=== PATIENT | female | born 2000 | race Caucasian/White ===

== ENCOUNTER 2020-05-14 18:23 | Emergency (ER) | payer BC, SELFPAY ==
[2020-05-14 18:45] VITALS: BP 129/75; PULSE 101; RESP 16; TEMP 37.1; O2SAT 99; BMI 35.3
--- NOTE | 2020-05-14 18:52 | HMH.EDUTC ---
[facility] [place] Clinical Impression: Vomiting Qualifiers: Vomiting type: unspecified Vomiting Intractability: non-intractable Nausea presence: with nausea Qualified Code(s): R11.2 - Nausea with vomiting, unspecified Qualifiers: Weeks of gestation: 8 weeks Qualified Code(s): Z3A.08 - 8 weeks gestation of Disposition: Home, Self-Care Condition on Discharge: Good Instructions: DI for Hyperemesis Gravidarum Additional Instructions: RTC or ER if needed this weekend. Follow up with OB next week. Prescriptions: Promethazine HCl 12.5 mg PO Q6HP PRN 5 Days #10 tab PRN Reason: Vomiting [facility] Referrals: PCP,No [Primary Care Provider] - Time of Disposition: 19:39 Medical Decision Making - Ray Inquiry Pt receiving controlled substance: No Vital Signs: 05/14/20 18:45 Temperature 98.7 F Temperature Source Oral Pulse Rate [Right Brachial] 101 H Respiratory Rate 16 Blood Pressure [Right Arm] 129/75 Blood Pressure Mean [Right Arm] 93 Blood Pressure Source [Right Arm] Automatic Cuff Blood Pressure Position [Right Arm] Sitting 02 Sat by Pulse Oximetry 99 Oxygen Delivery Method Room Air Orders (Tests/Meds): ED MEDICATIONS Discontinued Medications Generic Name Dose Route Start Last Admin Trade Name Freq PRN Reason Stop Dose Admin Sodium Chloride 1,000 mls @ 999 mls/hr 05/14/20 19:00 05/14/20 19:31 Sod Chlor 0.9% 1000ml Bag IV 05/14/20 20:00 Not Given .Q1H1M KUMAR Promethazine HCl 12.5 mg 05/14/20 19:07 05/14/20 19:10 Promethazine Hcl 12.5mg Tablet PO 05/14/20 19:08 12.5 mg ONCE ONE Administration Medical Decision Narrative: Brittany attempted to start IV on patient. She got upset and asked her to remove the needle, and then vomited. I asked her to call her grandmother to give her a ride, then offered IM Phenerghan, which she also refused. Given Phenerghan 12.5 mg PO and will observe. [facility] [place] - General Stated complaint: 8 wks preg vomiting for 3 days Time Seen by Provider: 05/14/20 18:52 - History of Present Illness Provider Complaint: Vomiting X 3 days. 1 episode of diarrhea. Has not kept anything down today. Has not urinated since she woke up. She is 8 weeks . No abdominal pain. No fever. Onset (ago): day(s) (3) Location: abdomen Relieving factors: none Exacerbating factors: eating Associated symptoms: denies other symptoms Treatments prior to arrival: none - Related Data Previous Rx's Medication Instructions Recorded Promethazine HCl 12.5 mg PO Q6HP PRN 5 Days #10 tab 05/14/20 Allergies Allergy/AdvReac Type Severity Reaction Status Date / Time No Known Allergies Allergy Verified 04/19/20 12:04 [facility] History - Hepatitis A Screen Attestation statement:: This patient has been screened for Hepatitis A risk factors. I have reviewed the patient's past medical history: Yes 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: Reports:: Anxiety, Depression Other Surgeries: Yes: No Previous Surgery - Social History Smoking Status: Never smoker Alcohol Intake: never Substance Use Type: denies use Occupational Status: employed - Psychiatric History Pschychiatric History:: Reports:: Anxiety, Depression Family Hx:: Non-contributory ROS Obtained: Yes All systems reviewed & no additional complaints - Gastrointestinal Gastrointestingal: Reports: diarrhea, vomiting Physical Exam - General General appearance: alert, in no apparent distress - Head Head exam: normocephalic - Eye Eye exam: Present: PERRL - ENT ENT exam: Present: mucous membranes dry - Respiratory Respiratory exam: Present: normal lung sounds bilaterally - Cardiovascular Cardiovascular exam: Present: regular rate, normal rhythm - Abdominal Exam Abdominal exam: Present: soft - Neurological Exam Neurological exam: Present: alert, oriented X3 - Psychiatric Psychiatric exam: Present: normal affect, normal mood
[2020-05-14 19:42] VITALS: BP 129/75; PULSE 101; RESP 16; TEMP 37.1; O2SAT 99
== END 2020-05-14 19:46 | disposition home or self-care (01) ==
PROVIDERS: Emergency Provider Physician Assistant
DX: O21.0 Mild hyperemesis gravidarum (principal); Z3A.08 8 weeks gestation of pregnancy
CPT/HCPCS: 99201

== ENCOUNTER 2023-04-18 11:47 | Outpatient (CLI) | payer MEDICAID, SELFPAY ==
[2023-04-18 12:05] VITALS: BMI 28.3
== END 2023-04-18 12:17 | disposition home or self-care (01) ==
LOC: UTC 11:53
PROVIDERS: Visit Provider Nurse Practitioner Family
DX: Z11.1 Encounter for screening for respiratory tuberculosis (principal)
CPT/HCPCS: 86580

== ENCOUNTER 2023-07-24 10:27 | Emergency (ER) | payer MEDICAID, SELFPAY ==
[2023-07-24 10:35] VITALS: BP 129/83; PULSE 106; RESP 22; TEMP 36.9; O2SAT 100; BMI 39.6
--- NOTE | 2023-07-24 10:42 | ED_ITS ---
Discharge Plan Disposition Patient Disposition: Home, Self-Care Condition: Good Prescriptions Prescriptions: New amoxicillin-pot clavulanate 875-125 mg Tablet 1 tab PO Q12H 7 Days Qty: 14 0RF fluticasone propionate [Flonase Allergy Relief] 50 mcg/actuation spray,suspension 2 spray intranasal DAILY Qty: 16 0RF Rx Instructions: administer into each nostril daily methylprednisolone [Medrol (Mario)] 4 mg tablets,dose pack See Rx Instructions .Route .COMPLEX 6 Days Qty: 21 0RF Rx Instructions: taper pack; No Action bupropion HCl 150 mg tablet sustained-release 12 hr 150 mg PO DAILY Patient Comments: TAKE 1 TABLET BY MOUTH ONCE DAILY. DO NOT CRUSH, CHEW, OR SPLIT sertraline 100 mg tablet 100 mg PO DAILY Patient Comments: TAKE 1 TABLET BY MOUTH ONCE DAILY Referrals Follow up/Referrals: Provider,Referral, MD [Primary Care Provider] - See instructions Activity Restrictions/Add. Instructions Additional Instructions/Restrictions: Take medication as prescribed Over the counter Motrin and/or Tylneol for fever and pain Follow up with your Family Doctor if no improvement or any worsening of symptoms Straight to ER if any life threatening symptoms Clinical Impressions Clinical Impression: Sinusitis Qualifiers: Sinusitis location: unspecified location Chronicity: unspecified Qualified Code(s): J32.9 - Chronic sinusitis, unspecified Stand Alone Forms Stand Alone Forms: Work/School Release Instructions Patient Instructions: DI for Sinusitis, Sinusitis Discharge ED Provider: Lucy Cisneros [facility] [place] H[place] General Stated complaint: runny nose, sinus pressure Mode of Arrival: Ambulatory Source of Information: Patient Limitations: No Limitations Time Seen by Provider: 07/24/23 10:43 Description of Symptoms (Recalled from Triage Doc. by RN): PATIENT C/O RUNNY NOSE AND CONGESTION THAT STARTED LAST NIGHT HEENT Symptoms (Recalled from RN notes): Yes Resp Symptoms (Recalled from RN notes): No Skin Symptoms (Recalled from RN notes): No MS Symptoms (Recalled from RN notes): No Functional Status (Recalled from RN notes): WNL History of Present Illness Provider Complaint: Patient states that she has been having sinus congestion and feeling of fullness in both ears for 4-5 days but got worse last night States that she has tried several over the counter medications but they havent worked so today she came in to get checked thinking she may need some antibiotics to clear it up Denies flu symptoms denies exposure to flu or COVID Related Data Home Medications Medication Instructions Recorded Confirmed bupropion HCl 150 mg tablet,12 hr 150 mg PO DAILY 07/24/23 07/24/23 sustained-release sertraline 100 mg tablet 100 mg PO DAILY 07/24/23 07/24/23 Previous Rx's Medication Instructions Recorded amoxicillin 875 mg-potassium 1 tab PO Q12H 7 days #14 tabs 07/24/23 clavulanate 125 mg tablet fluticasone propionate 50 2 spray intranasal DAILY #16 grams 07/24/23 mcg/actuation nasal spray,suspension (Flonase Allergy Relief) methylprednisolone 4 mg tablets in See Rx Instructions .Route 07/24/23 a dose pack (Medrol (Mario)) .COMPLEX 6 days #21 tabs Allergies Allergy/AdvReac Type Severity Reaction Status Date / Time No Known Allergies Allergy Verified 04/19/20 12:04 Worker's Comp Is this a Worker's Comp case?: [facility] Disclaimer: The information contained in this section may have been updated after the patient was seen, as this information can be updated by other users. 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 (Updated 07/24/23 @ 10:49 by Lucy Cisneros APRN) Anxiety Depression Kidney stone Urinary tract infection Surgical History (Updated 07/24/23 @ 10:42 by Funmilayo Aponte RN) History of section History of tubal ligation Social History Smoking Status: Never smoker alcohol intake: never substance use type: denies use current occupational status: other Travel in the last 8 weeks: None ROS Obtained: Yes All systems reviewed & no additional complaints except as documented and Yes Systems reviewed as appropriate & no additional complaints except as documented Constitutional Constitutional: Reports system reviewed and no additional complaints, except as documented, Reports as per HPI, Denies body ache, Denies chills, Denies fever(s) and Reports headache(s) ENT Ears, Nose, Mouth, and Throat: Reports system reviewed and no additional complaints, except as documented, Reports as per HPI, Reports headache(s), Reports sinus pain and Reports sinus pressure Cardiovascular Cardiovascular: Reports system reviewed and no additional complaints, except as documented and Reports as per HPI Respiratory Respiratory: Reports system reviewed and no additional complaints, except as documented and Reports as per HPI Gastrointestinal Gastrointestingal: Reports system reviewed and no additional complaints, except as documented and as per HPI Neurologic Neurologic: Reports headache(s) Physical Exam General General appearance: alert and in no apparent distress ENT ENT exam: Present mucous membranes moist Expanded ENT Exam TM/Canal exam: Bilateral TM: bulging Nose exam: Present sinus tenderness Respiratory Respiratory exam: Present normal lung sounds bilaterally Cardiovascular Cardiovascular exam: Present regular rate, normal rhythm and normal heart sounds Neurological Exam Neurological exam: Present alert, oriented X3 and normal gait Medical Decision Making Ray Inquiry Pt receiving controlled substance: No Ray was queried for this patient: No Vital Signs: 07/24/23 10:35 Temperature 98.4 F Temperature Source Oral Pulse Rate [Left Brachial] 106 H Respiratory Rate 22 Blood Pressure [Left Arm] 129/83 Blood Pressure Mean [Left Arm] 98 Blood Pressure Source [Left Arm] Automatic Cuff Blood Pressure Position [Left Arm] Sitting 02 Sat by Pulse Oximetry 100 Oxygen Delivery Method Room Air Medical Decision Narrative: Patient denies states that her last period was a couple weeks ago
[2023-07-24 10:43] VITALS: BP 129/83; PULSE 106; RESP 22; TEMP 36.9; O2SAT 100
== END 2023-07-24 10:53 | disposition home or self-care (01) ==
PROVIDERS: Emergency Provider Nurse Practitioner
DX: J01.90 Acute sinusitis, unspecified (principal); R51.9 Headache, unspecified; R09.81 Nasal congestion
CPT/HCPCS: 99212; 99214; G0463

== ENCOUNTER 2023-08-04 14:32 | Emergency (ER) | payer MEDICAID, SELFPAY ==
[2023-08-04 15:05] VITALS: BP 124/80; PULSE 98; RESP 18; TEMP 37.1; O2SAT 96; BMI 39.6
[2023-08-04 15:27] LABS: UTC Strep Screen (Rapid) Negative (Negative)
--- NOTE | 2023-08-04 15:46 | ED_ITS ---
Discharge Plan Disposition Patient Disposition: Home, Self-Care Condition: Good Prescriptions Prescriptions: New yengslrllgtjjyg-ykpfagrke-UX [Bromfed DM] 2-30-10 mg/5 mL syrup 10 ml PO Q6H PRN (Reason: cold symptoms) Qty: 118 0RF No Action bupropion HCl 150 mg tablet sustained-release 12 hr 150 mg PO DAILY Patient Comments: TAKE 1 TABLET BY MOUTH ONCE DAILY. DO NOT CRUSH, CHEW, OR SPLIT sertraline 100 mg tablet 100 mg PO DAILY Patient Comments: TAKE 1 TABLET BY MOUTH ONCE DAILY Referrals Follow up/Referrals: Provider,Referral, MD [Primary Care Provider] - See instructions Activity Restrictions/Add. Instructions Additional Instructions/Restrictions: No sign of a bacterial infection. Likely viral. Viruses can take 7-14 days to run their course. Nasal saline and bulb syringe or nose Laura to remove nasal drainage to help with nasal congestion. Hard to eat, drink, sleep with nasal congestion so important to keep this cleaned out. Monitor temp. Tylenol or Motrin as needed for pain or fever Encourage fluids, water, Gatorade, Powerade, Pedialyte if infant/toddler/child Warm salt water gargles Warm fluids Sore throat lozenges Sleep elevated Humidifier/vaporizer Follow-up immediately for new or worsening symptoms or no noticeable improvement over the next 48-72 hours. dont take otc allergy meds while on bromfed Clinical Impressions Clinical Impression: Allergic rhinitis Instructions Patient Instructions: DI for Allergic Rhinitis Discharge ED Provider: Brad ([facility])[place] [facility] [place] General Stated complaint: diarrhea, vomitting, headache. hoarse Mode of Arrival: Ambulatory Source of Information: Patient Limitations: No Limitations Time Seen by Provider: 08/04/23 15:46 Description of Symptoms (Recalled from Triage Doc. by RN): Pt's symptoms are allergies, ASCENCIO, fever, diarrhea, sore throat, and vomiting. HEENT Symptoms (Recalled from RN notes): Yes Resp Symptoms (Recalled from RN notes): No Skin Symptoms (Recalled from RN notes): No MS Symptoms (Recalled from RN notes): No Functional Status (Recalled from RN notes): n/a History of Present Illness Provider Complaint: 23 yr old female presents for cough,congestion, ASCENCIO, fever, diarrhea, sore throat, and vomiting. Related Data Home Medications Medication Instructions Recorded Confirmed bupropion HCl 150 mg tablet,12 hr 150 mg PO DAILY 07/24/23 08/04/23 sustained-release sertraline 100 mg tablet 100 mg PO DAILY 07/24/23 08/04/23 Previous Rx's Medication Instructions Recorded upkbwryskdqdpuw-affttbitmfyvtjb-GG 10 ml PO Q6H PRN cold symptoms 08/04/23 2 mg-30 mg-10 mg/5 mL oral syrup #118 mL (Bromfed DM) Allergies Allergy/AdvReac Type Severity Reaction Status Date / Time No Known Allergies Allergy Verified 08/04/23 15:28 Worker's Comp Is this a Worker's Comp case?: No [facility] Disclaimer: The information contained in this section may have been updated after the patient was seen, as this information can be updated by other users. 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) Smoking Status: Never smoker alcohol intake: never substance use type: denies use current occupational status: other Travel in the last 8 weeks: None ROS Obtained: Yes All systems reviewed & no additional complaints except as documented Constitutional Constitutional: Reports system reviewed and no additional complaints, except as documented, Reports as per HPI and Reports headache(s) Eyes Eyes: Reports system reviewed and no additional complaints, except as documented ENT Ears, Nose, Mouth, and Throat: Reports system reviewed and no additional complaints, except as documented, Reports as per HPI, Reports headache(s), Reports nasal congestion, Reports nasal discharge, Reports sinus pain, Reports sinus pressure and Reports sore throat Cardiovascular Cardiovascular: Reports system reviewed and no additional complaints, except as documented Respiratory Respiratory: Reports system reviewed and no additional complaints, except as documented Gastrointestinal Gastrointestingal: Reports system reviewed and no additional complaints, except as documented Musculoskeletal Musculoskeletal: Reports system reviewed and no additional complaints, except as documented Integumentary/Breasts Skin/Breast: Reports system reviewed and no additional complaints, except as documented Neurologic Neurologic: Reports system reviewed and no additional complaints, except as documented and Reports headache(s) Endocrine Endocrine: Reports system reviewed and no additional complaints, except as documented Allergic/Immunologic Allergic/Immunologic: Reports system reviewed and no additional complaints, except as documented, Reports as per HPI and Reports seasonal rhinorrhea Physical Exam General General appearance: alert and in no apparent distress Head Head exam: atraumatic Eye Eye exam: Present normal appearance and PERRL ENT ENT exam: Present normal exam, normal oropharynx, mucous membranes moist and TM's normal bilaterally Respiratory Respiratory exam: Present normal lung sounds bilaterally Cardiovascular Cardiovascular exam: Present regular rate and normal rhythm Neurological Exam Neurological exam: Present alert and oriented X3 Psychiatric Psychiatric exam: Present normal affect Skin Skin exam: Present warm and intact Lymphatic Lymphatic Findings: no adenopathy Medical Decision Making Medical Records Medical records reviewed: Yes I reviewed the patient's medical records. Ray Inquiry Pt receiving controlled substance: No Ray was queried for this patient: No Vital Signs: 08/04/23 15:05 Temperature 98.8 F Temperature Source Oral Pulse Rate [Right Radial] 98 H Respiratory Rate 18 Blood Pressure [Right Arm] 124/80 Blood Pressure Mean [Right Arm] 94 Blood Pressure Source [Right Arm] Automatic Cuff Blood Pressure Position [Right Arm] Sitting 02 Sat by Pulse Oximetry 96 Oxygen Delivery Method Room Air Lab Data Lab results reviewed: Yes I reviewed the patient's lab results. Lab Results 08/04/23 15:13: Strep Scn Rapid Clinic Negative Orders (Tests/Meds): ORDERS Category Date Time Status Strep Screen Confirmation Stat Micro 08/04/23 15:13 Received
[2023-08-04 15:59] VITALS: BP 124/80; PULSE 98; RESP 18; TEMP 37.1; O2SAT 96
== END 2023-08-04 15:59 | disposition home or self-care (01) ==
PROVIDERS: Emergency Provider Nurse Practitioner Family
DX: R05.9 Cough, unspecified (principal); J30.9 Allergic rhinitis, unspecified; R51.9 Headache, unspecified; R50.9 Fever, unspecified; R11.2 Nausea with vomiting, unspecified; R09.81 Nasal congestion; R19.7 Diarrhea, unspecified; R07.0 Pain in throat
CPT/HCPCS: 87880; 99212; 99214; G0463

== ENCOUNTER 2023-08-08 16:42 | Emergency (ER) | payer MEDICAID, SELFPAY ==
[2023-08-08 17:00] VITALS: BP 119/69; PULSE 82; RESP 18; TEMP 36.7; O2SAT 100; BMI 33.6
--- NOTE | 2023-08-08 17:01 | ED_ITS ---
Discharge Plan Disposition Patient Disposition: Home, Self-Care Condition: Good Prescriptions Prescriptions: New azithromycin [Zithromax] 250 mg tablet 250 mg PO UD DOSE PK Qty: 6 0RF Rx Instructions: Take two (2) tablets today, then one (1) tablet days #2 thru #5 methylprednisolone 4 mg Tablets,Dose Pack 4 mg PO DIRECTED 6 Days Qty: 21 0RF Rx Instructions: Take 1 pack as directed for 6 days qahgxdqglgewdhz-dgbxjnojd-FN [Bromfed DM] 2-30-10 mg/5 mL Syrup 5 ml PO Q6H PRN (Reason: Cough) Qty: 240 0RF guaifenesin [Mucinex] 600 mg tablet extended release 12hr 600 - 1,200 mg PO BIDP PRN (Reason: Congestion) Qty: 30 0RF No Action bupropion HCl 150 mg tablet sustained-release 12 hr 150 mg PO DAILY Patient Comments: TAKE 1 TABLET BY MOUTH ONCE DAILY. DO NOT CRUSH, CHEW, OR SPLIT sertraline 100 mg tablet 100 mg PO DAILY Patient Comments: TAKE 1 TABLET BY MOUTH ONCE DAILY Referrals Follow up/Referrals: Provider,Referral, MD [Primary Care Provider] - See instructions Activity Restrictions/Add. Instructions Additional Instructions/Restrictions: Drink plenty of fluids. Take tylenol or ibuprofen for pain or fever. Take the medications as directed. Follow up with your regular doctor. GO TO THE ER FOR ANY WORSENING SYMPTOMS Don't start the oral steroids until tomorrow since you had the steroid shot here today. Clinical Impressions Clinical Impression: Sinusitis Instructions Patient Instructions: Sinusitis, DI for Sinusitis Discharge ED Provider: Harpreet Hauser [facility] General Stated complaint: poss sinus inf Time Seen by Provider: 08/08/23 17:01 History of Present Illness Provider Complaint: She states that for the past 3 days she has had worsening sinus congestion, ear pain, and chest congestion. Related Data Home Medications Medication Instructions Recorded Confirmed bupropion HCl 150 mg tablet,12 hr 150 mg PO DAILY 07/24/23 08/08/23 sustained-release sertraline 100 mg tablet 100 mg PO DAILY 07/24/23 08/08/23 Previous Rx's Medication Instructions Recorded azithromycin 250 mg tablet 250 mg PO UD DOSE PK #6 tabs 08/08/23 (Zithromax) xmpfrmfhsoaquma-exibptxxdjjcobf-PO 5 ml PO Q6H PRN Cough #240 mL 08/08/23 2 mg-30 mg-10 mg/5 mL oral syrup (Bromfed DM) guaifenesin 600 mg tablet, 600 - 1,200 mg (1 - 2 x 600 mg) PO 08/08/23 extended release 12 hr (Mucinex) BIDP PRN Congestion #30 tabs methylprednisolone 4 mg tablets in 4 mg PO DIRECTED 6 days #21 tabs 08/08/23 a dose pack Allergies Allergy/AdvReac Type Severity Reaction Status Date / Time No Known Allergies Allergy Verified 08/08/23 17:11 [facility] Disclaimer: The information contained in this section may have been updated after the patient was seen, as this information can be updated by other users. 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 History of section Social History Smoking Status: Never smoker alcohol intake: never substance use type: denies use current occupational status: other Travel in the last 8 weeks: None ROS Obtained: Yes All systems reviewed & no additional complaints except as documented Constitutional Constitutional: Reports chills and Reports fever(s) Eyes Eyes: Denies eye discharge ENT Ears, Nose, Mouth, and Throat: Reports as per HPI Cardiovascular Cardiovascular: Denies chest pain Respiratory Respiratory: Denies chest congestion and Reports cough Gastrointestinal Gastrointestingal: Reports nausea; Denies abdominal pain, constipation, cramping, diarrhea or vomiting Musculoskeletal Musculoskeletal: Denies arthralgias Integumentary/Breasts Skin/Breast: Denies rash Neurologic Neurologic: Denies paresthesias Physical Exam General General appearance: alert and in no apparent distress Eye Eye exam: Present normal appearance, PERRL and EOMI ENT ENT exam: Present mucous membranes moist and normal external ear exam Expanded ENT Exam External ear exam: Present normal external inspection TM/Canal exam: Bilateral TM: erythema and bulging Nose exam: Absent sinus tenderness Nasal speculum exam: Bilateral: normal Mouth exam: Present normal external inspection; Absent drooling Teeth exam: Present normal inspection Throat exam: Present tonsillar erythema and tonsillomegaly Neck Neck exam: Present normal inspection, full ROM and trachea midline; Absent tenderness, lymphadenopathy or thyromegaly Chest Chest inspection: Present normal inspection and symmetric chest wall rise; Absent tenderness or rash Respiratory Respiratory exam: Present normal lung sounds bilaterally; Absent respiratory distress, wheezes, stridor or accessory muscle use Cardiovascular Cardiovascular exam: Present regular rate, normal rhythm and normal heart sounds Abdominal Exam Abdominal exam: Present soft; Absent distention, tenderness, guarding, rebound or rigidity Extremities Exam Extremities exam: Present normal inspection, full ROM and normal capillary refill; Absent tenderness or calf tenderness Back Exam Back exam: Present normal inspection and full ROM; Absent tenderness Neurological Exam Neurological exam: Present alert and oriented X3 Psychiatric Psychiatric exam: Present normal affect and normal mood Skin Skin exam: Present warm, dry, intact and normal color Lymphatic Lymphatic Findings: no adenopathy Medical Decision Making Medical Records Medical records reviewed: No I reviewed the patient's medical records. Ray Inquiry Pt receiving controlled substance: No Lab Data Lab results reviewed: Yes I reviewed the patient's lab results.
[2023-08-08] MEDS: DEXAMETHASONE 4MG/ML 1ML VIAL 8 MG IM (17:36)
[2023-08-08 17:57] VITALS: BP 119/69; PULSE 82; RESP 18; TEMP 36.7; O2SAT 100
== END 2023-08-08 17:57 | disposition home or self-care (01) ==
PROVIDERS: Emergency Provider Nurse Practitioner Family
DX: J01.90 Acute sinusitis, unspecified (principal); R09.81 Nasal congestion; H92.09 Otalgia, unspecified ear; F41.9 Anxiety disorder, unspecified; F32.A Depression, unspecified
CPT/HCPCS: 96372; 99212; 99214; G0463

== ENCOUNTER 2023-09-19 17:27 | Emergency (ER) | payer MEDICAID, SELFPAY ==
[2023-09-19 18:10] VITALS: BP 164/71; PULSE 100; RESP 18; TEMP 36.8; O2SAT 100; BMI 39.0
--- NOTE | 2023-09-19 18:29 | ED_ITS ---
Discharge Plan Disposition Patient Disposition: Home, Self-Care Condition: Good Prescriptions Prescriptions: New amoxicillin 875 mg tablet 875 mg PO Q12H Qty: 20 0RF benzonatate 100 mg capsule 100 mg PO TIDP PRN (Reason: Cough) Qty: 30 0RF methylprednisolone 4 mg Tablets,Dose Pack 4 mg PO DIRECTED 6 Days Qty: 21 0RF Rx Instructions: Take 1 pack as directed for 6 days No Action bupropion HCl 150 mg tablet sustained-release 12 hr 150 mg PO DAILY Patient Comments: TAKE 1 TABLET BY MOUTH ONCE DAILY. DO NOT CRUSH, CHEW, OR SPLIT sertraline 100 mg tablet 100 mg PO DAILY Patient Comments: TAKE 1 TABLET BY MOUTH ONCE DAILY Referrals Follow up/Referrals: Provider,Referral, MD [Primary Care Provider] - See instructions Activity Restrictions/Add. Instructions Additional Instructions/Restrictions: Drink plenty of fluids. Take tylenol or ibuprofen for pain or fever. Take the medications as directed. Follow up with your regular doctor. GO TO THE ER FOR ANY WORSENING SYMPTOMS Clinical Impressions Clinical Impression: Sinusitis Qualifiers: Sinusitis location: unspecified location Chronicity: unspecified Qualified Code(s): J32.9 - Chronic sinusitis, unspecified Instructions Patient Instructions: Sinusitis, DI for Sinusitis Discharge ED Provider: Harpreet Hauser [facility] General Stated complaint: sore throat, ruyny nose, Time Seen by Provider: 09/19/23 18:28 Related Data Home Medications Medication Instructions Recorded Confirmed bupropion HCl 150 mg tablet,12 hr 150 mg PO DAILY 07/24/23 09/19/23 sustained-release sertraline 100 mg tablet 100 mg PO DAILY 07/24/23 09/19/23 Previous Rx's Medication Instructions Recorded amoxicillin 875 mg tablet 875 mg PO Q12H #20 tabs 09/19/23 benzonatate 100 mg capsule 100 mg PO TIDP PRN Cough #30 caps 09/19/23 methylprednisolone 4 mg tablets in 4 mg PO DIRECTED 6 days #21 tabs 09/19/23 a dose pack Allergies Allergy/AdvReac Type Severity Reaction Status Date / Time No Known Allergies Allergy Verified 09/19/23 18:40 [facility] Disclaimer: The information contained in this section may have been updated after the patient was seen, as this information can be updated by other users. 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) History of tubal ligation History of section Social History Smoking Status: Never smoker alcohol intake: never substance use type: denies use current occupational status: other Travel in the last 8 weeks: None ROS Obtained: Yes All systems reviewed & no additional complaints except as documented Constitutional Constitutional: Reports poor appetite Eyes Eyes: Reports system reviewed and no additional complaints, except as documented ENT Ears, Nose, Mouth, and Throat: Reports as per HPI Cardiovascular Cardiovascular: Reports system reviewed and no additional complaints, except as documented and Denies chest pain Respiratory Respiratory: Denies shortness of breath, Denies chest congestion, Reports cough, Denies stridor and Denies wheezing Gastrointestinal Gastrointestingal: Reports system reviewed and no additional complaints, except as documented; Denies abdominal pain, diarrhea or vomiting Musculoskeletal Musculoskeletal: Reports system reviewed and no additional complaints, except as documented and Denies arthralgias Integumentary/Breasts Skin/Breast: Reports system reviewed and no additional complaints, except as documented and Denies rash Neurologic Neurologic: Denies paresthesias Allergic/Immunologic Allergic/Immunologic: Denies wheezing Physical Exam General General appearance: alert and in no apparent distress Eye Eye exam: Present normal appearance, PERRL and EOMI ENT ENT exam: Present mucous membranes moist and normal external ear exam Expanded ENT Exam External ear exam: Present normal external inspection TM/Canal exam: Bilateral TM: erythema and bulging Nose exam: Absent sinus tenderness Nasal speculum exam: Bilateral: normal Mouth exam: Present normal external inspection; Absent drooling Teeth exam: Present normal inspection Throat exam: Present tonsillar erythema and tonsillomegaly Neck Neck exam: Present normal inspection, full ROM and trachea midline; Absent tenderness, lymphadenopathy or thyromegaly Chest Chest inspection: Present normal inspection and symmetric chest wall rise; Absent tenderness or rash Respiratory Respiratory exam: Present normal lung sounds bilaterally; Absent respiratory distress, wheezes, stridor or accessory muscle use Cardiovascular Cardiovascular exam: Present regular rate, normal rhythm and normal heart sounds Abdominal Exam Abdominal exam: Present soft; Absent distention, tenderness, guarding, rebound or rigidity Extremities Exam Extremities exam: Present normal inspection, full ROM and normal capillary refill; Absent tenderness or calf tenderness Back Exam Back exam: Present normal inspection and full ROM; Absent tenderness Neurological Exam Neurological exam: Present alert and oriented X3 Psychiatric Psychiatric exam: Present normal affect and normal mood Skin Skin exam: Present warm, dry, intact and normal color Lymphatic Lymphatic Findings: no adenopathy Medical Decision Making Medical Records Medical records reviewed: No I reviewed the patient's medical records. Ray Inquiry Pt receiving controlled substance: No
[2023-09-19] MEDS: DEXAMETHASONE 4MG/ML 1ML VIAL 8 MG IM (19:01)
[2023-09-19 19:25] VITALS: BP 164/71; PULSE 100; RESP 18; TEMP 36.8; O2SAT 100
== END 2023-09-19 19:25 | disposition home or self-care (01) ==
PROVIDERS: Emergency Provider Nurse Practitioner Family
DX: J01.90 Acute sinusitis, unspecified (principal); R07.0 Pain in throat; R09.81 Nasal congestion
CPT/HCPCS: 96372; 99212; 99214; G0463

== ENCOUNTER 2023-10-02 08:09 | Emergency (ER) | payer MEDICAID, SELFPAY ==
[2023-10-02 08:20] VITALS: BP 123/70; PULSE 91; RESP 18; TEMP 36.9; O2SAT 100; BMI 40.0
[2023-10-02 08:28] LABS: Coronavirus 19, PCR Not Detected (NotDetected); Influenza A, PCR Not Detected (NotDetected); Influenza B, PCR Not Detected (NotDetected)
--- NOTE | 2023-10-02 08:34 | EXP.UTC ---
Discharge Plan Disposition Patient Disposition: Home, Self-Care Condition: Good Prescriptions Prescriptions: No Action bupropion HCl 150 mg tablet sustained-release 12 hr 150 mg PO DAILY Patient Comments: TAKE 1 TABLET BY MOUTH ONCE DAILY. DO NOT CRUSH, CHEW, OR SPLIT sertraline 100 mg tablet 100 mg PO DAILY Patient Comments: TAKE 1 TABLET BY MOUTH ONCE DAILY Referrals Follow up/Referrals: Provider,Referral, MD [Primary Care Provider] - See instructions Activity Restrictions/Add. Instructions Additional Instructions/Restrictions: *Monitor Temp, Over the counter Motrin or Tylenol as directed/as needed Tylenol every 4 hours and Motrin every 6 hours (as long as your family doctor has told you that you can take it) for fever or pain. and straight to ER if unable to lower temp less than 101.0 after medication given *Warm salt water gargles may help to soothe the throat *Throat Lozenges? *Warm fluids like tea with honey may help to soothe the throat? *Sleep elevated *Humidifier/Vaporizer Follow up IMMEDIATELY for new or worsening symptoms or no Noticeable improvement over the next 48-72 hours. 911 for difficulty breathing or swallowing You were tested for today for COVID19 your test result should be back in the next few hours, you may check your results on the [facility] Clinical Impressions Clinical Impression: Viral syndrome Stand Alone Forms Stand Alone Forms: Work/School Release Instructions Patient Instructions: DI for Viral Syndrome Discharge ED Provider: Lucy Cisneros [facility] HPI General Stated complaint: fever, body aches Mode of Arrival: Ambulatory Source of Information: Patient Limitations: No Limitations Time Seen by Provider: 10/02/23 08:35 Description of Symptoms (Recalled from Triage Doc. by RN): Pt's symptomd are cough, body aches, fever, and sore throat. 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 them now she is having body aches, headache, fever and cough wants to get checked to see if she may have it now too Related Data Home Medications Medication Instructions Recorded Confirmed bupropion HCl 150 mg tablet,12 hr 150 mg PO DAILY 07/24/23 10/02/23 sustained-release sertraline 100 mg tablet 100 mg PO DAILY 07/24/23 10/02/23 Allergies Allergy/AdvReac Type Severity Reaction Status Date / Time No Known Allergies Allergy Verified 10/02/23 08:30 Worker's Comp Is this a Worker's Comp case?: No [facility] Disclaimer: The information contained in this section may have been updated after the patient was seen, as this information can be updated by other users. 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) History of tubal ligation History of section Social History Smoking Status: Never smoker alcohol intake: never substance use type: denies use current occupational status: other Travel in the last 8 weeks: None ROS Obtained: Yes All systems reviewed & no additional complaints except as documented and Yes Systems reviewed as appropriate & no additional complaints except as documented Constitutional Constitutional: Reports system reviewed and no additional complaints, except as documented, Reports as per HPI, Reports body ache, Reports chills, Reports fatigue, Reports fever(s) and Reports headache(s) ENT Ears, Nose, Mouth, and Throat: Reports system reviewed and no additional complaints, except as documented, Reports as per HPI, Reports headache(s), Reports nasal congestion and Reports nasal discharge Cardiovascular Cardiovascular: Reports system reviewed and no additional complaints, except as documented and Reports as per HPI Respiratory Respiratory: Reports system reviewed and no additional complaints, except as documented, Reports as per HPI and Reports cough Gastrointestinal Gastrointestingal: Reports system reviewed and no additional complaints, except as documented and as per HPI Genitourinary Female Genitourinary: Reports system reviewed and no additional complaints, except as documented and Reports as per HPI Neurologic Neurologic: Reports headache(s) Endocrine Endocrine: Reports fatigue Physical Exam General General appearance: alert and in no apparent distress ENT ENT exam: Present mucous membranes moist Expanded ENT Exam Nose exam: Absent sinus tenderness Throat exam: Present normal inspection Respiratory Respiratory exam: Present normal lung sounds bilaterally; Absent respiratory distress or wheezes Cardiovascular Cardiovascular exam: Present regular rate, normal rhythm and normal heart sounds Abdominal Exam Abdominal exam: Present soft and normal bowel sounds; Absent distention or tenderness Neurological Exam Neurological exam: Present alert, oriented X3 and normal gait Medical Decision Making Ray Inquiry Pt receiving controlled substance: No Ray was queried for this patient: No Vital Signs: 10/02/23 08:20 Temperature 98.4 F Temperature Source Oral Pulse Rate [Right Radial] 91 H Respiratory Rate 18 Blood Pressure [Right Arm] 123/70 Blood Pressure Mean [Right Arm] 87 Blood Pressure Source [Right Arm] Automatic Cuff Blood Pressure Position [Right Arm] Sitting 02 Sat by Pulse Oximetry 100 Oxygen Delivery Method Room Air Orders (Tests/Meds): ORDERS Category Date Time Status Rapid PCR Covid and Flu A/B Stat Lab 10/02/23 08:22 Received
--- NOTE | 2023-10-02 08:36 | PC.NURSE ---
sent up a rapid covid and flu
[2023-10-02 09:00] VITALS: BP 123/70; PULSE 91; RESP 18; TEMP 36.9; O2SAT 100
--- NOTE | 2023-10-02 18:24 | PC.NURSE ---
Called pt and LM about test result.
== END 2023-10-02 09:00 | disposition home or self-care (01) ==
PROVIDERS: Emergency Provider Nurse Practitioner
DX: R51.9 Headache, unspecified (principal); R50.9 Fever, unspecified; R05.9 Cough, unspecified; Z20.822 Contact with and (suspected) exposure to COVID-19
CPT/HCPCS: 87636; 99212; 99213; G0463

== ENCOUNTER 2024-02-22 13:34 | Emergency (ER) | payer OTHER, SELFPAY ==
[2024-02-22 13:40] VITALS: BP 124/75; PULSE 103; RESP 17; TEMP 37.2; O2SAT 98; BMI 40.0
--- NOTE | 2024-02-22 13:49 | EXP.UTC ---
Discharge Plan Disposition Patient Disposition: Home, Self-Care Condition: Good Prescriptions Prescriptions: No Action phentermine 15 mg capsule 15 mg PO DAILY zonisamide 100 mg capsule 100 mg PO DAILY Referrals Follow up/Referrals: Provider,Referral, MD [Primary Care Provider] - See instructions Activity Restrictions/Add. Instructions Additional Instructions/Restrictions: *Monitor Temp, Over the counter Motrin or Tylenol as directed/as needed Tylenol every 4 hours and Motrin every 6 hours (as long as your family doctor has told you that you can take it) for fever or pain. and straight to ER if unable to lower temp less than 101.0 after medication given *Warm salt water gargles may help to soothe the throat *Throat Lozenges? *Warm fluids like tea with honey may help to soothe the throat? *Sleep elevated *Humidifier/Vaporizer Follow up IMMEDIATELY for new or worsening symptoms or no Noticeable improvement over the next 48-72 hours. 911 for difficulty breathing or swallowing You were tested for today for Upper Respiratory Panel with COVID19 your test result should be back in the next 24 hours, you may check your results on the [facility] [employer] [facility] Clinical Impressions Clinical Impression: Viral syndrome Stand Alone Forms Stand Alone Forms: Work/School Release Instructions Patient Instructions: DI for Viral Syndrome, DI for Headache Print Language Print Language: Irish Discharge ED Provider: Lucy Cisneros [facility] [place] HPI General Stated complaint: fever, migrane Mode of Arrival: Ambulatory Source of Information: Patient Limitations: No Limitations Time Seen by Provider: 02/22/24 13:51 Description of Symptoms (Recalled from Triage Doc. 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) History of tubal ligation History of section Social History Smoking Status: Never smoker alcohol intake: never substance use type: denies use current occupational status: other Travel in the last 8 weeks: None ROS Obtained: Yes All systems reviewed & no additional complaints except as documented and Yes Systems reviewed as appropriate & no additional complaints except as documented Constitutional Constitutional: Reports system reviewed and no additional complaints, except as documented, Reports as per HPI, Reports body ache, Reports chills, Reports fever(s) and Reports headache(s) Eyes Eyes: Reports system reviewed and no additional complaints, except as documented, Reports as per HPI, Denies blurry vision, Denies floaters, Denies sensitivity to light, Denies photophobia, Denies seeing flashes and Denies tunnel vision ENT Ears, Nose, Mouth, and Throat: Reports system reviewed and no additional complaints, except as documented, Reports as per HPI, Reports dizziness and Reports headache(s) Cardiovascular Cardiovascular: Reports system reviewed and no additional complaints, except as documented and Reports as per HPI Respiratory Respiratory: Reports system reviewed and no additional complaints, except as documented and Reports as per HPI Gastrointestinal Gastrointestingal: Reports system reviewed and no additional complaints, except as documented and as per HPI Neurologic Neurologic: Reports dizziness and Reports headache(s) Physical Exam General General appearance: alert and in no apparent distress Eye Eye exam: Present normal appearance, PERRL and EOMI; Absent conjunctival redness, conjunctival injection, discharge, periorbital swelling or periorbital tenderness ENT ENT exam: Present mucous membranes moist and TM's normal bilaterally Expanded ENT Exam Nose exam: Absent sinus tenderness Throat exam: Present normal inspection Chest Chest inspection: Present normal inspection and symmetric chest wall rise Respiratory Respiratory exam: Present normal lung sounds bilaterally; Absent respiratory distress or wheezes Cardiovascular Cardiovascular exam: Present regular rate, normal rhythm and normal heart sounds Abdominal Exam Abdominal exam: Present soft and normal bowel sounds; Absent distention or tenderness Neurological Exam Neurological exam: Present alert, oriented X3 and normal gait Medical Decision Making Medical Records Screening: Per USPSTF and CDC recommendations, given the prevalence of disease in our region, it is our hospital?s policy to screen for HIV and viral Hepatitis for all patients aged 18 and over and those with ongoing risk factors. 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
[2024-02-22] MEDS: KETOROLAC 60MG/2ML VIAL 60 MG IM (13:58)
[2024-02-22 14:03] VITALS: BP 124/75; PULSE 103; RESP 17; TEMP 37.2; O2SAT 98
[2024-02-22 14:23] LABS: Coronavirus 19, PCR Not Detected (NotDetected); Influenza A, PCR Not Detected (NotDetected); Influenza B, PCR Not Detected (NotDetected)
== END 2024-02-22 14:18 | disposition home or self-care (01) ==
PROVIDERS: Emergency Provider Nurse Practitioner
DX: R51.9 Headache, unspecified (principal); R50.9 Fever, unspecified; B34.9 Viral infection, unspecified
CPT/HCPCS: 87636; 96372; 99212; 99214; G0463; J1885

== ENCOUNTER 2024-03-17 16:00 | Emergency (ER) | payer OTHER, SELFPAY ==
[2024-03-17 16:29] LABS: Microscopic, Urine URINE MICROSCOPIC (MICROSCOPIC)
[2024-03-17 16:54] LABS: Appearance,Urine CLOUDY (Clear); Blood, Urine Negative (Negative); Color,Urine YELLOW (Yellow); Glucose,Urine (UA) Negative (Negative); Ketones,Urine Negative (Negative); Leukocyte Esterase,Urine TRACE (Negative); Nitrate,Urine Negative (Negative); Protein,Urine TRACE (Negative); Specific Gravity, Urine >= 1.030 (1.005-1.030); Urobilinogen,Urine 0.2 EU/dl (0.2)
[2024-03-17 17:21] LABS: Bilirubin,Urine 1+ (Negative)
[2024-03-17 17:25] VITALS: BP 145/84; PULSE 95; RESP 18; TEMP 36.6; O2SAT 99; BMI 40.2
--- NOTE | 2024-03-17 17:39 | EXP.UTC ---
Discharge Plan Disposition Patient Disposition: Home, Self-Care Condition: Good Prescriptions Prescriptions: New nitrofurantoin monohyd/m-cryst [Macrobid] 100 mg capsule 100 mg PO Q12H 7 Days Qty: 14 0RF Rx Instructions: must administer with a meal/food phenazopyridine [Pyridium] 200 mg tablet 200 mg PO Q8H 2 Days Qty: 6 0RF No Action phentermine 15 mg capsule 15 mg PO DAILY Referrals Follow up/Referrals: Robin Goncalves MD [Primary Care Provider] - See instructions Activity Restrictions/Add. Instructions Additional Instructions/Restrictions: *Increase fluids. Water not Soda or Tea *Start antibiotic immediately and be sure to take as ordered for the FULL length of time although you should start to see improvement over the next 48 hours *Pyridium as needed Remember this medication will turn your urine . This is normal but it will stain what ever it gets on *You should not use Pyridium for more than 48 hours. If so , follow up with your primary physician to review urine culture and ensure that antibiotic is adequate for infection *Be SURE to follow up anytime for new or worsening symptoms with your family doctor. AND in 48 hours for urine culture results with your family doctor, if you do not have a doctor then you may call back to the [facility] for urine culture results and further treatment. We do recommend that you choose and establish care with a Primary Care Physician. ?AND follow up with them ?in 10-14 days to repeat UA to ensure infection is resolved and blood no longer present *Be sure to let your PCP know that we sent urine cultures from the [facility] so they can follow up to ensure that you area the on the correct antibiotic Call your doctor office and make appointment for 48 hours (2 days from today) ?to follow up and get the results of your urine culture and further treatment Clinical Impressions Clinical Impression: UTI (urinary tract infection) Stand Alone Forms Stand Alone Forms: Work/School Release Instructions Patient Instructions: DI for Urinary Tract Infection (UTI), Nitrofurantoin, Phenazopyridine Print Language Print Language: Wolof Discharge ED Provider: Lucy Cisneros [facility] [place] General Stated complaint: jpain and burning when urinating Mode of Arrival: Ambulatory Source of Information: Patient Limitations: No Limitations Time Seen by Provider: 03/17/24 17:40 Description of Symptoms (Recalled from Triage Doc. by RN): PATIENT C/O PAIN AND URGENCY WITH URINATION X 4 DAYS HEENT Symptoms (Recalled from RN notes): No Resp Symptoms (Recalled from RN notes): No Skin Symptoms (Recalled from RN notes): No MS Symptoms (Recalled from RN notes): No Functional Status (Recalled from RN notes): WNL History of Present Illness Provider Complaint: Patient states that for the last few days she has been having burning with urination and feeling of urgency and frequency States today she was still having symptoms so she came in to get checked worried she may have a UTI Related Data Home Medications ?Medication ?Instructions ?Recorded ?Confirmed phentermine 15 mg capsule 15 mg PO DAILY 02/22/24 03/17/24 Previous Rx's ?Medication ?Instructions ?Recorded nitrofurantoin 100 mg PO Q12H 7 days #14 caps 03/17/24 monohydrate/macrocrystals 100 mg capsule (Macrobid) phenazopyridine 200 mg tablet 200 mg PO Q8H pain 2 days #6 tabs 03/17/24 (Pyridium) Allergies Allergy/AdvReac Type Severity Reaction Status Date / Time No Known Allergies Allergy Verified 10/02/23 08:30 Worker's Comp Is this a Worker's Comp case?: No [facility] Disclaimer: The information contained in this section may have been updated after the patient was seen, as this information can be updated by other users. 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) History of tubal ligation History of section Social History Smoking Status: Never smoker alcohol intake: never substance use type: denies use current occupational status: other Travel in the last 8 weeks: None ROS Obtained: Yes All systems reviewed & no additional complaints except as documented and Yes Systems reviewed as appropriate & no additional complaints except as documented Constitutional Constitutional: Reports system reviewed and no additional complaints, except as documented, Reports as per HPI, Denies body ache, Denies chills and Denies fever(s) ENT Ears, Nose, Mouth, and Throat: Reports system reviewed and no additional complaints, except as documented and Reports as per HPI Cardiovascular Cardiovascular: Reports system reviewed and no additional complaints, except as documented and Reports as per HPI Respiratory Respiratory: Reports system reviewed and no additional complaints, except as documented and Reports as per HPI Gastrointestinal Gastrointestingal: Reports system reviewed and no additional complaints, except as documented and as per HPI; Denies abdominal pain, nausea or vomiting Genitourinary Female Genitourinary: Reports system reviewed and no additional complaints, except as documented, Reports as per HPI, Reports dysuria, Reports urinary frequency and Reports urinary urgency Musculoskeletal Musculoskeletal: Reports system reviewed and no additional complaints, except as documented and Reports as per HPI Physical Exam General General appearance: alert and in no apparent distress ENT ENT exam: Present mucous membranes moist Respiratory Respiratory exam: Present normal lung sounds bilaterally; Absent respiratory distress or wheezes Cardiovascular Cardiovascular exam: Present regular rate, normal rhythm and normal heart sounds Abdominal Exam Abdominal exam: Present soft and normal bowel sounds; Absent distention or tenderness Neurological Exam Neurological exam: Present alert, oriented X3 and normal gait Medical Decision Making Medical Records Screening: Per USPSTF and CDC recommendations, given the prevalence of disease in our region, it is our hospital?s policy to screen for HIV and viral Hepatitis for all patients aged 18 and over and those with ongoing risk factors. Ray Inquiry Pt receiving controlled substance: No Ray was queried for this patient: No Vital Signs: 03/17/24 17:25 Temperature 97.9 F Temperature Source Oral Pulse Rate [Left Brachial] 95 H Respiratory Rate 18 Blood Pressure [Left Arm] 145/84 H Blood Pressure Mean [Left Arm] 104 Blood Pressure Source [Left Arm] Automatic Cuff Blood Pressure Position [Left Arm] Sitting 02 Sat by Pulse Oximetry 99 Oxygen Delivery Method Room Air Lab Data Lab results reviewed: Yes I reviewed the patient's lab results. Lab Results 03/17/24 16:25: Urine Color Yellow, Urine Appearance Cloudy, Urine pH 6.0, Ur Specific Cost >= 1.030, Urine Protein Trace, Urine Glucose (UA) Negative, Urine Ketones Negative, Urine Blood Negative, Urine Nitrate Negative, Urine Bilirubin 1+ A, Urine Urobilinogen 0.2, Ur Leukocyte Esterase Trace Orders (Tests/Meds): ORDERS Category Date Time Status UA [Urinalysis and Microscopic] Stat Lab 03/17/24 16:25 Results
[2024-03-17 17:49] VITALS: BP 145/84; PULSE 95; RESP 18; TEMP 36.6; O2SAT 99
[2024-03-17 18:01] LABS: Bacteria,Urine 4+ /lpf; RBC,Urine Occasional #/hpf (0-3); Squamous Epithelial Cell,Urine 20-50 #/hpf (0-5)
== END 2024-03-17 17:52 | disposition home or self-care (01) ==
PROVIDERS: Emergency Provider Nurse Practitioner; PCP Family Medicine
DX: N39.0 Urinary tract infection, site not specified (principal)
CPT/HCPCS: 81001; 87086; 99213; G0381

== ENCOUNTER 2024-05-05 08:15 | Emergency (ER) | payer OTHER, SELFPAY ==
[2024-05-05 08:32] VITALS: BP 130/82; PULSE 106; RESP 18; TEMP 36.7; O2SAT 99; BMI 40.2
--- NOTE | 2024-05-05 08:41 | ED_ITS ---
Discharge Plan Disposition Patient Disposition: Home, Self-Care Condition: Good Prescriptions Prescriptions: New phenazopyridine [Pyridium] 200 mg tablet 200 mg PO Q8H 2 Days Qty: 6 0RF cefdinir 300 mg capsule 300 mg PO BID Qty: 20 0RF Referrals Follow up/Referrals: Robin Goncalves MD [Primary Care Provider] - See instructions Activity Restrictions/Add. Instructions Additional Instructions/Restrictions: *Increase fluids. Water not Soda or Tea *Start antibiotic immediately and be sure to take as ordered for the FULL length of time although you should start to see improvement over the next 48 hours *Pyridium as needed Remember this medication will turn your urine . This is normal but it will stain what ever it gets on *You should not use Pyridium for more than 48 hours. If so , follow up with your primary physician to review urine culture and ensure that antibiotic is adequate for infection *Be SURE to follow up anytime for new or worsening symptoms with your family doctor. AND in 48 hours for urine culture results with your family doctor, if you do not have a doctor then you may call back to the [facility] for urine culture results and further treatment. We do recommend that you choose and establish care with a Primary Care Physician. ?AND follow up with them ?in 10-14 days to repeat UA to ensure infection is resolved and blood no longer present *Be sure to let your PCP know that we sent urine cultures from the [facility] so they can follow up to ensure that you area the on the correct antibiotic Call your doctor office and make appointment for 48 hours (2 days from today) ?to follow up and get the results of your urine culture and further treatment Clinical Impressions Clinical Impression: UTI (urinary tract infection) Instructions Patient Instructions: Sore Throat, DI for Urinary Tract Infection (UTI) Print Language Print Language: Vietnamese Discharge ED Provider: Lucy Cisneros [facility] [place] HPI General Stated complaint: Pain adn frequent urination, sore throat, chills Mode of Arrival: Ambulatory Source of Information: Patient Time Seen by Provider: 05/05/24 08:41 Description of Symptoms (Recalled from Triage Doc. by RN): UTI S/S, COLD CHILLS, BODY ACHES, SORE THROAT, COUGH HEENT Symptoms (Recalled from RN notes): Yes Resp Symptoms (Recalled from RN notes): Yes Skin Symptoms (Recalled from RN notes): No MS Symptoms (Recalled from RN notes): No Functional Status (Recalled from RN notes): WNL History of Present Illness Provider Complaint: Patient states that she has been having UTI symptoms States that she has been having urgency and frequency, States that she has been taking OTC uti meds but havent helped much so she came in States that also she started yesterday with sore throat, and cough wanted to get checked for strep throat too Related Data Previous Rx's ?Medication ?Instructions ?Recorded cefdinir 300 mg capsule 300 mg PO BID #20 caps 05/05/24 phenazopyridine 200 mg tablet 200 mg PO Q8H pain 2 days #6 tabs 05/05/24 (Pyridium) Allergies Allergy/AdvReac Type Severity Reaction Status Date / Time No Known Allergies Allergy Verified 10/02/23 08:30 Worker's Comp Is this a Worker's Comp case?: No [facility] Disclaimer: The information contained in this section may have been updated after the patient was seen, as this information can be updated by other users. 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) History of tubal ligation History of section Social History Smoking Status: Never smoker alcohol intake: never substance use type: denies use current occupational status: other Travel in the last 8 weeks: None ROS Obtained: Yes All systems reviewed & no additional complaints except as documented and Yes Systems reviewed as appropriate & no additional complaints except as documented Constitutional Constitutional: Reports system reviewed and no additional complaints, except as documented, Reports as per HPI and Denies fever(s) ENT Ears, Nose, Mouth, and Throat: Reports system reviewed and no additional complaints, except as documented, Reports as per HPI, Reports nasal congestion, Reports nasal discharge and Reports sore throat Cardiovascular Cardiovascular: Reports system reviewed and no additional complaints, except as documented and Reports as per HPI Respiratory Respiratory: Reports system reviewed and no additional complaints, except as documented, Reports as per HPI and Reports cough Gastrointestinal Gastrointestingal: Reports system reviewed and no additional complaints, except as documented and as per HPI Genitourinary Female Genitourinary: Reports system reviewed and no additional complaints, except as documented, Reports as per HPI, Reports dysuria, Reports urinary frequency and Reports urinary urgency Musculoskeletal Musculoskeletal: Reports system reviewed and no additional complaints, except as documented and Reports as per HPI Physical Exam General General appearance: alert and in no apparent distress ENT ENT exam: Present mucous membranes moist Expanded ENT Exam Nose exam: Absent sinus tenderness Throat exam: Present other (mild erythema ) Respiratory Respiratory exam: Present normal lung sounds bilaterally; Absent respiratory distress or wheezes Cardiovascular Cardiovascular exam: Present regular rate, normal rhythm and normal heart sounds Neurological Exam Neurological exam: Present alert, oriented X3 and normal gait Medical Decision Making Medical Records Screening: Per USPSTF and CDC recommendations, given the prevalence of disease in our region, it is our hospital?s policy to screen for HIV and viral Hepatitis for all patients aged 18 and over and those with ongoing risk factors. Ray Inquiry Pt receiving controlled substance: No Ray was queried for this patient: No Vital Signs: 05/05/24 08:32 Temperature 98.1 F Temperature Source Oral Pulse Rate [Left Radial] 106 H Respiratory Rate 18 Blood Pressure [Left Arm] 130/82 Blood Pressure Mean [Left Arm] 98 02 Sat by Pulse Oximetry 99
[2024-05-05 08:43] LABS: Apearance,Urine Cloudy (Clear); Color,Urine Orange (Yellow); Glucose,Urine (UA) 1+ (Negative); Protein,Urine 1+ (Negative)
[2024-05-05 08:44] LABS: Bilirubin,Urine Negative (Negative); Blood, Urine Negative (Negative); Ketones,Urine TRACE (Negative); UTC Leukocyte Esterase,Urine Trace (Negative); UTC Nitrate,Urine Positive (Negative); Urobilinogen,Urine 1 EU/dl (0.2)
[2024-05-05 08:45] LABS: UTC Influenza A Antigen Negative (Negative); UTC Strep Screen (Rapid) Negative (Negative)
[2024-05-05 08:46] LABS: UTC Influenza B Antigen Negative (Negative)
[2024-05-05 08:51] VITALS: BP 130/82; PULSE 106; RESP 18; TEMP 36.7
--- NOTE | 2024-05-07 08:26 | PC.NURSE ---
REVIEWED URINE CULTURE WITH Kimberlyn MENDEZ APRN. NO CHANGES NEEDED AT THIS TIME
== END 2024-05-05 08:56 | disposition home or self-care (01) ==
PROVIDERS: Emergency Provider Nurse Practitioner; PCP Family Medicine
DX: N39.0 Urinary tract infection, site not specified (principal); R30.9 Painful micturition, unspecified; R35.0 Frequency of micturition; R07.0 Pain in throat; R05.9 Cough, unspecified; R09.81 Nasal congestion
CPT/HCPCS: 81003; 87086; 87088; 87186; 87804; 87880; 99212; G0381

== ENCOUNTER 2024-08-24 04:09 | Emergency (ER) | payer OTHER, SELFPAY ==
[2024-08-24] VITALS (20 sets, daily range): BP systolic 91–143; BP diastolic 52–93; PULSE 89–116; RESP 14–28; TEMP 36.7; O2SAT 97–100; BMI 39.0
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
[2024-08-24] MEDS: ONDANSETRON 4MG/2ML VIAL 4 MG IV ×2 (04:17→08:19)
[2024-08-24] MEDS: LACTATED RINGERS 1000ML 1,000 ML 999 ML IV (04:17)
--- NOTE | 2024-08-24 04:27 | PC.NURSE ---
multiple IV attempts with no success, US guided attempt at this time
--- NOTE | 2024-08-24 04:49 | ECG_ITS ---
APPROVED REPORT Exam: Resting ECG HR:105 bpm ECG Measurements Heart Rate 105 AXES MD 185 P 39 QRSd 83 QRS 7 QT 327 T 26 QTc 388 Conclusion SINUS TACHYCARDIA MODERATE VOLTAGE CRITERIA FOR LVH, CONSIDER NORMAL VARIANT [MEETS CRITERIA IN ONE OF: R(aVL), S(V1), R(V5), R(V5/V6)+S(V1)] Electronically signed by : REGGIE SNOWDEN, 08/25/2024 00:24:17
[2024-08-24 04:55] LABS: Basophils # 0.1 K/mm3 (0-0.2); Basophils % 0.8 % (0.1-2.0); Eosinophils # 0.1 K/mm3 (0.0-0.4); Eosinophils % 0.5 % (0.1-12.0); Hematocrit 39.9 % (37.0-47.0); Lymphocytes # 2.3 K/mm3 (0.7-4.5); Lymphocytes % 23.4 % (10-50); Mean Corpuscular HGB Conc 32.6 g/dL (31.8-35.4); Mean Corpuscular Hemoglobin 26.5 pg (27.0-31.2); Mean Corpuscular Volume 81.3 fl (81-99); Monocytes # 0.5 K/mm3 (0.1-1.0); Monocytes % 5.4 % (1.7-9.3); Neutrophils # 6.9 K/mm3 (1.8-7.8); Neutrophils % 69.6 % (37.0-80.0); Platelet Count 360 K/mm3 (142-424); Red Blood Count 4.91 M/mm3 (4.20-5.40); Red Cell Distribution Width 15.2 % (11.5-17.5)
[2024-08-24 04:59] LABS: Chloride 110 mmol/L (98-107)
[2024-08-24 05:00] LABS: Potassium 5.4 mmoL/L (3.5-5.1); Sodium 141 mmol/L (136-145)
[2024-08-24 05:02] LABS: Alanine Aminotransferase 39 U/L (12-78); Anion Gap 17.4 mEq/L (5-15); Aspartate Amino Transferase 72 U/L (14-36); Blood Urea Nitrogen 13 mg/dl (7-17); Carbon Dioxide 19 mmol/L (22.0-30.0); Creatinine Clearance Estimated 177 mL/min (50-200); Estimated Glomerular Filt Rate 103 ml/min (>60); Ethyl Alcohol 107 mg/dl (0-10); GFR (African American) 124 ML/MIN (>60)
[2024-08-24 05:03] LABS: Albumin/Globulin Ratio 1.4 (1.1-1.8); Alkaline Phosphatase 83 U/L (38-126); Bilirubin,Total 0.9 mg/dl (0.2-1.3); Calcium 9.3 mg/dl (8.4-10.2); Globulin 3.5 g/dL (1.3-3.2); Glucose 91 mg/dl (74-100); Total Protein,Serum 8.5 g/dl (6.3-8.2)
[2024-08-24 05:04] LABS: HCG Qualitative, Serum Negative (Negative)
--- NOTE | 2024-08-24 05:04 | PC.NURSE ---
pt assisted on and off bedpan, c-collar remains on, cms intact, NAD noted, RR even and non labored,
[2024-08-24 05:05] LABS: Activated Partial Thrombo Time 27.9 seconds (22.8-30.6); INR 0.93 (0.9-1.1); Prothrombin Time 10.5 seconds (10.1-12.5)
--- NOTE | 2024-08-24 05:16 | PC.NURSE ---
I attempted IV X2 with one attempt being US guided, unsuccessful both attempts, notified . successful placement of 20G US guided IV in left AC.
[2024-08-24] MEDS: IOPAMIDOL-370 (76%);100ML BOTTLE 160 ML IV (05:28)
[2024-08-24] MEDS: 0.9 % SODIUM CHLORIDE 50 ML VIAL 80 ML IV (05:28)
[2024-08-24] MEDS: SODIUM CHLORIDE 0.9% 10ML SYR (RAD ONLY) 10 ML IV (05:29)
--- NOTE | 2024-08-24 05:50 | PC.NURSE ---
c-collar removed per Dr Carr. CMS intact.
--- NOTE | 2024-08-24 07:36 | PC.NURSE ---
walked patient to the bathroom. she reported no symptoms.
[2024-08-24 09:06] LABS: Troponin I < 0.01 ng/ml (0.00-0.034)
--- NOTE | 2024-08-24 09:09 | PC.NURSE ---
Dr.Allran jennifer matias MD
--- NOTE | 2024-08-24 09:27 | PC.NURSE ---
gama reese gave pt crackers and drink for po challenge
== END 2024-08-24 10:08 | disposition home or self-care (01) ==
PROVIDERS: Emergency Medicine; Emergency Provider Student in an Organized Health Care Education/Training Program
DX: D18.03 Hemangioma of intra-abdominal structures (principal); K76.0 Fatty (change of) liver, not elsewhere classified; F10.129 Alcohol abuse with intoxication, unspecified; R10.31 Right lower quadrant pain; R07.81 Pleurodynia; Y90.5 Blood alcohol level of 100-119 mg/100 ml; V49.3XXA Car occupant (driver) (passenger) injured in unspecified nontraffic accident, initial encounter; Y93.89 Activity, other specified; Y92.488 Other paved roadways as the place of occurrence of the external cause
CPT/HCPCS: 70450; 70496; 70498; 71045; 71275; 72125; 72128; 72131; 72170; 74174; 80053; 80320; 84484; 84703; 85025; 85610; 85730; 93005; 96361; 96374; 96376; 99291; J2405; J7120; Q9967

== ENCOUNTER 2025-01-22 16:49 | Outpatient (CLI) | payer OTHER, SELFPAY ==
--- OUTSIDE RECORDS SUMMARY | 2025-01-27 10:27 | XMS_ITS | Encounter Summary ---
[facility] Address [address] [place] [address] Care Team Providers Care Pan Devulcanizer Name Role Phone Robin Goncalves MD Primary Care Provider + Reason for Visit * Reason Onset Date Comments Letter for School/Work 10/29/2024 Encounter Details Date Type Department Care Team (Late st Contact Info) Description 10/29/2024 Telephone [facility] FAMILY MEDICINE [address] [place] [address] Robin Goncalves MD [address] [place] [address] Letter for School/Work Social History Tobacco Use Types Packs/Day Years Used Date Smoking Tobacco: Never Smokeless Tobacco: Never Alcohol Use Standard Drinks/Week Comments Yes 2 (1 standard drink = 0.6 oz pur e alcohol) once a week, rare use, socail PHQ-2 Answer Date Recorded Patient Health Questionnaire-9 Score 21 10/21/2024 Comments Unknown Sex and Gender Information Value Date Recorded Sex Assigned at Female 10/02/2024 11:45 PM EDT Legal Sex Female 9:15 AM EDT Gender Identity Not on file Sexual Orientation Not on file documented as of this encounter Miscellaneous Notes * Telephone Encounter - Teresa Varghese RegSched Rep - 10/29/2024 2:29 PM EDT PRINTED AND 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 WOULD LIKE TO FLATWORK SUPERVISOR TODAY. documented in this encounter Plan of Treatment Not on file documented as of this encounter Visit Diagnoses Not on filedocumented in this encounter Additional Health Concerns Assessment Noted Time PHQ-2 Depression Total Score: 6 01/01/20 24 12:43 PM EDT documented as of this encounter Care Teams Pan Devulcanizer Relationship Specialty Start Date End Date Robin Goncalves MD [address] [place] [address] [place] [address] PCP - General Family Medicine 01/01/24 documented as of this encounter
--- OUTSIDE RECORDS SUMMARY | 2025-01-27 10:27 | XMS_ITS | Encounter Summary ---
[facility] Address [address] [place] [id number] Care Team Providers Care Space Systems Operations Superintendent Name Role Phone Robin Goncalves MD Primary Care Provider + Reason for Visit * Reason Onset Date Comments PAPERWORK 01/12/2025 CALLBACK 01/12/2025 Encounter Details Date Type Department Care Team (Late st Contact Info) Description 01/12/2025 Telephone [facility] FAMILY MEDICINE [address] [place] [address] Robin Goncalves MD [address] [place] [address] PAPERWORK; CALLBACK Social History Tobacco Use Types Packs/Day Years [...] encounter Miscellaneous Notes * Telephone Encounter - Elliot Salazar MA - 01/12/2025 2:14 PM EDT Was informed from the front office that the patient came into steel pickler of a copy of this. * Telephone Encounter - Elliot Salazar MA - 01/12/2025 1:22 PM EDT Left Voicemail with Patient. HUB TO RELAY: Please let patient know the report for this lab should be accessible in her MyChart. * Telephone Encounter - Suma Malik RegSched Rep - 01/12/2025 1:07 PM EDT Caller: Jovanni Carter Relationship: Self Best call back number: [phone] What form or medical record are you requesting: COPY OF TB TEST RESULTS Who is requesting this form or medical record from you: WORK How would you like to receive the form or medical records (pick-up, mail, fax): PICK-UP Timeframe paperwork needed: SOON POSSIBLE (TODAY IS POSSIBLE) Additional notes: PATIENT WOULD LIKE A CALL ONCE PAPERWORK IS READY documented in this encounter Plan of Treatment Not on file documented as of this encounter Visit Diagnoses Not on filedocumented in this encounter Additional Health Concerns Assessment Noted Time PHQ-2 Depression Total Score: 6 01/01/20 24 12:43 PM EDT documented as of this encounter Care Teams Space Systems Operations Superintendent Relationship Specialty Start Date End Date Robin Goncalves MD [facility] [place] [address] PCP - General Family Medicine 01/01/24 documented as of this encounter
--- OUTSIDE RECORDS SUMMARY | 2025-01-27 10:28 | XMS_ITS | Encounter Summary ---
[facility] Address [address] [place] [id number] Care Team Providers Care Tour Agent Name Role Phone Robin Goncalves MD Primary Care Provider + Encounter Details Date Type Department Care Team (Late st Contact Info) Description 08/24/2024 Results Follow-Up [facility] FAMILY MEDICINE [address] [facility] [place] [address] Robin Goncalves MD [address] [facility] [address] Social History Tobacco Use Types Packs/Day Years Used Date Smoking Tobacco: Never Smokeless Tobacco: Never Alcohol Use Standard Drinks/Week Comments Yes 2 (1 standard drink = 0.6 oz pur e alcohol) PHQ-2 Answer Date Recorded Patient Health Questionnaire-9 Score 23 07/03/2024 Comments Unknown Sex and Gender Information Value Date Recorded Sex Assigned at Female 10/02/2024 11:45 PM EDT Legal Sex Female 9:15 AM EDT Gender Identity Not on file Sexual Orientation Not on file documented as of this encounter Plan of Treatment Not on file documented as of this encounter Visit Diagnoses Not on filedocumented in this encounter Additional Health Concerns Assessment Noted Time PHQ-2 Depression Total Score: 6 01/01/20 24 12:43 PM EDT documented as of this encounter Care Teams Tour Agent Relationship Specialty Start Date End Date Robin Goncalves MD [address] [facility] [place] [address] PCP - General Family Medicine 01/01/24 documented as of this encounter
--- OUTSIDE RECORDS SUMMARY | 2025-01-27 10:28 | XMS_ITS | Encounter Summary ---
[facility] Address [address] [place] [id number] Care Team Providers Care Natural Resources Instructor Name Role Phone Robin Goncalves MD Primary Care Provider + Encounter Details Date Type Department Care Team (Late st Contact Info) Description 10/05/2024 Results [facility]-Up [facility] FAMILY MEDICINE [address] [facility] [place] [address] Robin Goncalves MD [address] [facility] [place] [address] Social History Tobacco Use Types [...] documented as of this encounter Care Teams Natural Resources Instructor Relationship Specialty Start Date End Date Robin Goncalves MD [address] [facility] [place] [address] PCP - General Family Medicine 01/01/24 documented as of this encounter
--- OUTSIDE RECORDS SUMMARY | 2025-01-27 10:28 | XMS_ITS | Patient Health Record ---
Author Organization [facility] Address [address] [facility] [address] [place] [address] Care Team Providers Care Iap Displays Analyst Name Role Phone Argenis Miller [phone] Reason For Referral No Information Social History Social History Additional Details Category Social Info Options Details Miscellaneous: Sexually active: SEXUAL AC TIV: Current Plan Of Treatment No Information Medical (General) History 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 History ICD Code IBS MENSTR FLOW: Heavy PROMETHAZINE HCL 12.5 MG ORAL TABLET, OR AL Surgical History Surgery Date(Month/Year) denies
--- OUTSIDE RECORDS SUMMARY | 2025-01-27 10:28 | XMS_ITS | Clinical Summary ---
Author Organization [facility] Address [address] [place] [address] Care Team Providers Care Wrapping Checker Name Role Phone Robin Goncalves MD Primary Care Provider + Allergies No known active allergies Medications * This document contains information received from the source organization and may not represent a complete record from that organization. Phentermine HCl 8 MG tabletIndications: Class 3 severe obesity due to excess calories without serious comorbidity with body mass index (BMI) of 40.0 to 44.9 in adult Take 8 mg by mouth Daily. 30 each 2 5 Active atomoxetine (Strattera) 40 MG capsuleIndications :Attention deficit hyperactivity disorder (ADHD), unspecified ADHD type Take 1 capsule by mouth Daily. Take with food in the morning time. 30 capsule 2 5 10/17/19 26 Active lamoTRIgine (LaMICtal) 25 MG tabletIndications: Trauma and stressor-related disorder,MDD (major depressive disorder), recurrent episode, moderate Take 1 tablet by mouth Every Night for 14 days, THEN 2 tablets Every Night for 28 days. 70 tablet 5 Active Active Problems Problem Noted Date Diagnosed Date Iron deficiency anemia 04/01/2024 Overview (04/01/2024): Likely improved. If significant anemia persists will refer for IV iron Class 3 severe obesity due t o excess calories without serious comorbidity with body mass index (BMI) of 40.0 to 44.9 in adult 04/01/2024 Assessment & Plan (04/01/2024 2:52 PM EST): Patient's (Body mass index is 40.27 kg/m .) indicates that they are morbidly/severely obese (BMI > 40 or > 35 with obesity - related health condition) with health conditions that include none . Weight is improving with treatment. BMI is above average; BMI management plan is completed. We discussed portion control, increasing exercise, and Contrave if patient notices return of appetite and weight . Patient has lost 6% of her starting body weight over the last 3 months. We discussed alternative antiobesity medications to include lower dose phentermine at 8 mg as well as use of Contrave which would likely cost $100 or more per month. Patient will try to maintain her weight loss through lifestyle at present. Should weight regain begin to occur patient would like to try Contrave Encounters Date Type Department Care Team Description 01/12/[address] [facility] FAMILY MEDICINE [address] [place] [phone] Robin Goncalves MD PAPERWORK; CALLBACK 10/29/[address] [facility] FAM[facility] MEDICINE [address] [place] [place] [address] Robin Goncalves MD Letter for School/Work from Last 3 Months Immunizations Immunization Administration Dates Next Due DTaP / HiB 03/11/2002 DTaP, Unspecified 08/10/2004, 1,2000,08/30 Fluzone (or Fluarix & Flulav al for VFC) >6mos 04/16/2023 Hep A, 2 Dose 08/22/2011,12/18/2006 Hep B / HiB 2000 Hep B, Adolescent or Pediatric 2000,2000 Hib (PRP-T) 2000,2000 Hpv9 04/09/2013,10/04/2011,08/22/2011 IPV 08/10/2004, 5,2000,08/30 MMR 10/16/2022(Deferred: Other),08/10/2004,06/25/2001 Meningococcal Conjugate 08/22/2011 Pneumococcal Conjugate 15-Va lent (PCV15) 10/01/2001,06/25/2001,03/25/2001 Tdap 10/08/2023,08/22/2011 Varicella 08/22/2011,10/01/2001 Family History 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 Relation Name Comments Alcohol abuse Father Father Multiple other s Cancer Father Father Drug abuse Maternal Aunt Aunt Multiple aunts , uncles and cousins Arthritis Maternal Grandmother Grandmother Both si alfred Anxiety disorder Mother Mother Multiple ot hers Cancer Mother Mother Multiple Depression Mother Mother Multiple Diabetes Mother Mother Multiple Mental illness Mother Mother Relation Name Status Comments Father Father Maternal Aunt Aunt Maternal Grandmother Grandmother Mother Mother Social History Tobacco Use Types Packs/Day Years Used Date Smoking Tobacco: Never Smokeless Tobacco: Never Tobacco Cessation:Counseling Given: No Alcohol Use Standard Drinks/Week Comments Yes 2 [...] on file Sexual Orientation Not on file Last Filed Vital Signs Vital Sign Reading Time Taken Comments Blood Pressure 117/82 10/16/2024 12:09 PM EDT Pulse 80 10/16/2024 12:09 PM EDT Temperature 36.2 C (97.1 F) 10/03/2024 3:58 PM EDT Respiratory Rate 14 10/03/2024 3:58 PM EDT Oxygen Saturation 97% 10/03/2024 3:58 PM EDT Inhaled Oxygen Concentration - - Weight 91.6 kg (202 lb) 10/16/2024 12:09 PM EDT Height 152.4 cm (5') 10/16/2024 12:09 PM EDT Body Mass Index 39.45 10/16/2024 12:09 PM EDT Plan of Treatment Health Maintenance Due Date Last Done Comments Annual Gynecologic Pelvic an d Breast Exam 2000 CHLAMYDIA SCREENING 10/26/2020 PAP SMEAR 2021 COVID-19 Vaccine (2 - 2023- 5 season) 2024 04/12/2023 ANNUAL PHYSICAL 12/31/2024 01/01/2024 INFLUENZA VACCINE 02/25/2025 04/16/2023 TDAP/TD VACCINES (3 - Td or Tdap) 10/07/2033 10/08/2023, 08/22/2011 Pneumococcal Vaccine 0-49 Completed 2001, 06/25/2001, 03/25/2001 HPV VACCINES Completed 04/09/2013, 10/04/2011, 08/22/2011 HEPATITIS C SCREENING Completed 06/28/2022 , 06/28/2022 MENINGOCOCCAL B VACCINE Aged Out No l onger eligible based on patient's age to complete this topic Insurance Care Teams Wrapping Checker Relationship Specialty Start Date End Date Robin G[facility]calves [facility] [place] [address] PCP - General Family Medicine 01/01/24
--- OUTSIDE RECORDS SUMMARY | 2025-01-27 10:28 | XMS_ITS | Clinical Summary ---
Author Organization [facility] Address [address] [place] [address] Care Team Providers Care Stem Processing Machine Operator Name Role Phone Provider, Caitlin Weathers Primary Care Provid er Unavailable Allergies No known active allergies Medications * This document contains information received from the source organization and may not represent a complete record from that organization. acetaminophen (Tylenol) 325 MG tablet Take 2 tablets (650 mg) by mouth every 6 (six) hours if needed for pain. 100 tablet 3 Active Additional Information Patient not taking.Reported on 01/22/2024 docusate sodium (Colace) 250 MG capsule Take 1 capsule (250 mg) by mouth 2 (two) times a day if needed for constipation. 60 capsule 3 Active Additional Information Patient not taking.Reported on 01/22/2024 buPROPion SR (Wellbutrin SR) 100 MG 12 hr tabletIndicatio ns:Moderate episode of recurrent major depressive disorder (CMS/HCC) Take 1 tablet (100 mg) by mouth 1 (one) time each day. Do not crush, chew, or split. 30 tablet 4 Active sertraline (Zoloft) 100 MG tabletIndicatio ns:Moderate episode of recurrent major depressive disorder (CMS/HCC) Take 1 tablet (100 mg) by mouth 1 (one) time each day. 30 tablet 3 4 Active Additional Information Patient not taking.Reported on 01/22/2024 Active Problems Problem Noted Date Diagnosed Date premature rupture of membranes (PPROM) with unknown onset of labor 10/15/2022 Palpitation 09/28/2022 35 weeks gestation of 09/28/2022 Previous section complicating 06/28/2022 Overview (06/28/2022): Desires Trial of Labor Risks reviewed. Pyelonephritis 03/22/2022 test positive 02/20/2022 Assessment & Plan (02/20/2022 2:23 PM EDT): Discussed nutrition, medication, and exercise in . Handouts given. Discussed avoidance of cat litter during . Discussed taking vitamin consistently. Discussed dating ultrasound, noninvasive testing, nuchal translucency ultrasound, and first-trimester blood work Dating ultrasound ordered. ER precautions given. Follow-up in 4 weeks Group B Streptococcus carrier, antepartum 2020 Supervision of other normal , antepartu m 11/10/2020 Resolved Problems Problem Noted Date Diagnosed Date Resolved Date Postoperative fever 11/01/2022 11/05/19 23 Immunizations Immunization Administration Dates Next Due MMR 10/16/2022() Family History 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 Relation Name Comments Bipolar disorder Brother Leukemia Father's Sister Alcohol abuse Maternal Grandfather Bipolar disorder Maternal Grandfather Schizophrenia Maternal Grandfather Bipolar disorder Mother Schizophrenia Mother Relation Name Status Comments Brother Father's Sister Maternal Grandfather Mother Social History Tobacco Use Types Packs/Day Years Used Date Smoking Tobacco: Never Smokeless Tobacco: Never Tobacco Cessation:Counseling Given: Not Answered Alcohol Use Standard Drinks/Week Comments Yes 2 (1 standard drink = 0.6 oz pur e alcohol) PHQ-2 Answer Date Recorded Patient Health Questionnaire-2 Score 6 05/24/2023 [place] Depression Scale Answer Date Recorded [place] Depression Scale Total 21 11/09/2022 The thought of harming myself has occurred to me . Never 11/09/2022 PHQ-9 Answer Date Recorded Patient Health Questionnaire-9 Score 22 05/24/2023 CAGE ASSESSMENT Answer Date Recorded Cage unable to access Not on file 10/15/2022 Cage max number of drinks Not on file 2022 Cage Beverages a week Not on file 10/15/2022 Have you ever felt you should CUT down on your d rinking? 0 10/15/2022 Have you been ANNOYED by people criticizing your drinking? 0 10/15/2022 Have you felt GUILTY about your drinking? 0 10/15/2022 Have you had a drink first t benita in the morning (EYE-APPLICATION ENGINEER) to steady your nerves or to get rid of a hangover? 0 10/15/2022 CAGE Questionnaire Score 0 023 PHQ-2A Answer Date Recorded Patient Health Questionnaire-2 Score 6 03/22/2023 Comments No Sex and Gender Information Value Date Recorded Sex Assigned at Not on file Legal Sex Female 8:04 PM EDT Gender Identity Not on file Sexual Orientation Not on file Last Filed Vital Signs Vital Sign Reading Time Taken Comments Blood Pressure 118/73 04/15/2024 9:31 AM EST Pulse 101 04/15/2024 9:31 AM EST Temperature 36.2 C (97.1 F) 11/09/2022 8:28 AM EDT Respiratory Rate 18 11/09/2022 8:28 AM EDT Oxygen Saturation 98% 07/05/2023 2:57 PM EST Inhaled Oxygen Concentration - - Weight 90.3 kg (199 lb 1.2 oz) 11/09/2022 8:28 A M EDT Height 152.4 cm (5') 11/09/2022 8:28 AM EDT Body Mass Index 38.88 11/09/2022 8:28 AM EDT Plan of Treatment Health Maintenance Due Date Last Done Comments Dental Prophylaxis 2000 [facility]-Infant/Child/Adol SDOH Screenings 2000 [facility]- SDOH Screenings 2018 [facility]-Adult SDOH Screenings 2018 [facility]-Pap Smear 2021 [id number] Vaccine ( season) 2024 04/12/2023 [facility]-Depression Screening 05/24/2024 023, 05/24/2023, 11/09/2022 Dental Oral Exam 07/25/2024 01/22/2024 Dental X-Ray: Bitewings 01/22/2025 01/22/2024 [facility]-Influenza Vaccine (#1) 2025 04/16/2023 Dental X-Ray: Full Mouth 01/22/2027 01/22/2024 [facility]-DTaP,Tdap,and Td Vaccines (8 - Td or Tdap) 10/07/2033 10/08/2023, 08/22/2011, 08/10/2004, Additional history exists [facility]-Zoster Vaccines (1 of 2) 2050 08/22/2011, 10/01/2001 [facility]-Hepatitis B Vaccines Completed 001, 2000, 2000 [facility]-Pneumococcal Vaccine: Pediatrics (0 to 5 Years) and At-Risk Patients (6 to 49 Years) Completed 10/01/2001, 06/25/2001, 03/25/2001 [facility]-HIB Vaccines Completed 03/11/2002, 10/2000, 2000, Additional history exists [facility]-IPV Vaccines Completed 08/10/2004, , 2000, Additional history exists [facility]-Hepatitis A Vaccines Completed 08/22/2011, 11/26 [facility]-Varicella Vaccines Completed 08/22/2011, 2001 HPV Vaccines Completed 04/09/2013, 01/2012, 08/22/2011 [facility]-HIV Screening Completed 06/28/2022, , 06/03/2020 [facility]-Hepatitis C Screening Completed 06/28/2022, 11/2020 [facility]-Obesity Intervention Completed 07/05/2023, 04/28 [facility]-Rotavirus Vaccines Aged Out No lo nger eligible based on patient's age to complete this topic Procedures Procedure Name Priority Date/Time Associated Diagnosis Comments INTRAORAL - COMPLETE SERIES OF RADIOGRAPHIC IMAGES Routine 01/22/2024 8:30 AM EDT Encounter for dental examination COMPREHENSIVE ORAL EVALUATION - NEW OR ESTABLISHED PATIENT Routine 01/22/2024 8:30 AM EDT Encounter for dental examination HEPATITIS C ANTIBODY W/REFLEX TO HCV QUANT PCR Routine 06/28/2022 4:24 PM EST 24 weeks gestation of HIV 1/2 ANTIBODY/ANTIGEN SCREEN WITH REFLEX TO HIV I/II DIFFERENTIATION Routine 06/28/2022 4:24 PM EST 24 weeks gestation of from Last 3 Months or Most Recently Relevant to Health Maintenance Results * HIV 1 & 2 Antibody/Antigen Screen (06/28/2022 4:24 PM EST) HIV 1 & 2 Antibody/Antigen Screen Non Reactive Non Reactive 06/28/2022 6:29 PM EST [facility] Comment:Screening for HIV 1 & 2 antibodies, and P24 antigen is NONREACTIVE. No confirmatory testing is required. Blood Venous blood specimen / Unknown Venipuncture / Unknown 06/28/2022 4:24 PM EST 06/28/2022 4:25 PM EST Get Casanova MD LAB BLOOD ORDERABLES Nava l Result [facility] [address] [place] [address] * Hepatitis C Antibody (06/28/2022 4:24 PM EST) Pathologist [facility] Hepatitis C Antibody Negative Negative 06/28/2022 6:29 PM EST [facility] Blood Venous blood specimen / Unknown Venipuncture / Unknown 06/28/2022 4:24 PM EST 06/28/2022 4:25 PM EST Get Casanova MD LAB BLOOD ORDERABLES Nava l Result [facility] [address] [place] [address] from Last 3 Months or Most Recently Relevant to Health Maintenance Insurance [place] MEDICAID [place] [employer] [facility] HEALTH MEDICAID [facility] MEDICAID DENTAL Advance Directives * Full Code (Latest Code Status on File) Date Activated Date Inactivated Comments 11/01/2022 1:07 AM 11/05/2022 12:52 AM Question Answer Comments Patient has decision-making capacity? Yes * Full Code Date Activated Date Inactivated Comments 10/15/2022 5:10 PM 10/18/2022 5:17 PM Question Answer Comments Patient has decision-making capacity? Yes * Full Code Date Activated Date Inactivated Comments 03/22/2022 8:50 PM 03/24/2022 8:45 PM Question Answer Comments Patient has decision-making capacity? Yes Care Teams Stem Processing Machine Operator Relationship Specialty Start Date End Date ProviderCatilin PCP - General 11/10/20
== END 2025-01-22 23:59 ==
LOC: LAB.DROPOF 01-27 09:56
PROVIDERS: PCP Student in an Organized Health Care Education/Training Program; Visit Provider Student in an Organized Health Care Education/Training Program
DX: N39.0 Urinary tract infection, site not specified (principal)
CPT/HCPCS: 87086

== ENCOUNTER 2025-02-15 18:28 | Emergency (ER) | payer OTHER, SELFPAY ==
--- OUTSIDE RECORDS SUMMARY | 2025-02-15 18:38 | XMS_ITS | Encounter Summary ---
[facility] [address] [place] [id number] Care Team Providers Care Labeling Strategist Name Role Phone Robin Goncalves MD Primary Care Provider + Reason for Visit * Reason Comments Med Refill Encounter Details Date Type Department Care Team (Late st Contact Info) Description 02/12/2025 Refill [facility] [address] [place] [address] Robin Goncalves MD [address] [place] [address] Social History Tobacco Use Types [...] documented as of this encounter Care Teams Labeling Strategist Relationship Specialty Start Date End Date Robin Goncalves MD [address] [place] [address] PCP - General Family Medicine 01/01/24 documented as of this encounter
--- OUTSIDE RECORDS SUMMARY | 2025-02-15 18:38 | XMS_ITS | Clinical Summary ---
Author Organization [facility] Address [address] [place] [address] Care Team Providers Care Net Web Developer Name Role Phone Provider, Caitlin Weathers Primary [...] Recorded Patient Health Questionnaire-2 Score 6 05/24/2023 [place] Depression Scale Answer Date Recorded [place] Depression Scale Total 21 11/09/2022 The thought [...] drink first t benita in the morning (EYE-DARK ROOM ATTENDANT) to steady your nerves or to get [...] Date Last Done Comments Dental Prophylaxis 2000 [facility]-/Child/Adol SDOH Screenings 2000 [facility]- SDOH Screenings 2018 [facility]-Adult SDOH Screenings 2018 [facility]-Pap Smear 2021 [facility]-Depression Screening 05/24/2024 023, 05/24/2023, 11/09/2022 Dental Oral Exam 07/25/2024 01/22/2024 Dental X-Ray: Bitewings 01/22/2025 01/22/2024 [id number] Vaccine ( season) 2025 04/12/2023 [facility]-Influenza Vaccine (#1) 2025 04/16/2023 Dental X-Ray: [...] ORDERABLES Nava l Result [facility] [address] [place] [address] * Hepatitis C Antibody (06/28/2022 4:24 PM EST) Pathologist [facility] Hepatitis C Antibody Negative Negative 06/28/2022 6:29 PM EST [facility] Blood Venous blood specimen / Unknown Venipuncture / Unknown 06/28/2022 4:24 PM EST 06/28/2022 4:25 PM EST Get Casanova MD LAB BLOOD ORDERABLES Nava l Result [facility] [address] [place] [address] from Last 3 Months or Most Recently Relevant to Health Maintenance Insurance [place] MEDICAID [place] [facility] Advance Directives * Full Code [...] Patient has decision-making capacity? Yes Care Teams Net Web Developer Relationship Specialty Start Date End Date ProviderCaitlin PCP - General 11/10/20
--- OUTSIDE RECORDS SUMMARY | 2025-02-15 18:38 | XMS_ITS | Encounter Summary ---
[facility] Address [address] [place] [id number] Care Team Providers Care Grounds Restoration Specialist Name Role Phone Robin Goncalves MD Primary Care Provider + Reason for Visit * Reason Onset Date Comments PAPERWORK 01/12/2025 CALLBACK 01/12/2025 Encounter Details Date Type Department Care Team (Late st Contact Info) Description 01/12/2025 Telephone [facility] FAMILY MEDICINE [address] [place] [address] Robin Goncalves MD [address] [place] [address] PAPERWORK; CALLBACK Social History Tobacco [...] front office that the patient came into pickle solution maker of a copy of this. * Telephone Encounter - Elliot Salazar MA - 01/12/2025 1:22 PM EDT Left Voicemail with Patient. HUB TO RELAY: Please let patient know the report for this lab should be accessible in her MyChart. * Telephone Encounter - Suma Malik RegSched Rep - 01/12/2025 1:07 PM EDT Caller: Jovanni Carter Relationship: Self Best call back number: [phone] What form or medical record are you [...] documented as of this encounter Care Teams Grounds Restoration Specialist Relationship Specialty Start Date End Date Robin Goncalves MD [facility] [place] [address] PCP - General Family Medicine 01/01/24 documented as of this encounter
--- OUTSIDE RECORDS SUMMARY | 2025-02-15 18:38 | XMS_ITS | Patient Health Record ---
Author Organization [facility] Address [address] [facility] [address] [place] [address] Care Team Providers Care Independent Insurance Adjuster Name Role Phone Argenis Miller [phone] Reason For Referral No Information Social History Social History Additional Details Category Social Info Options Details Miscellaneous: Sexually active: SEXUAL AC TIV: Current Plan Of Treatment No Information Medical (General) History 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 History ICD Code IBS MENSTR FLOW: Heavy PROMETHAZINE HCL 12.5 MG ORAL TABLET, OR AL Surgical History Surgery Date(Month/Year) denies
--- OUTSIDE RECORDS SUMMARY | 2025-02-15 18:38 | XMS_ITS | Clinical Summary ---
Author Organization [facility] Address [address] [place] [address] Care Team Providers Care Director Of Aviation Name Role Phone Robin Goncalves MD Primary [...] Encounters Date Type Department Care Team Description 02/12/2025 Refill [facility] FAMILY MEDICINE [address] [place] [address] Robin Goncalves MD 01/12/2025 Telephone [facility] [address] [place] [address] Robin Goncalves MD PAPERWORK; CALLBACK from Last 3 Months Immunizations Immunization Administration [...] 2000 CHLAMYDIA SCREENING 10/26/2020 PAP SMEAR 2021 INFLUENZA VACCINE 12/26/2024 04/16/2023 ANNUAL PHYSICAL 12/31/2024 01/01/2024 TDAP/TD VACCINES (3 - Td or Tdap) 10/07/2033 10/08/2023, 08/22/2011 Pneumococcal Vaccine 0-49 Completed 2001, 06/25/2001, 03/25/2001 HPV VACCINES Completed 04/09/2013, 10/04/2011, 08/22/2011 HEPATITIS C SCREENING Completed 06/28/2022 , 06/28/2022 MENINGOCOCCAL B VACCINE Aged Out No l onger eligible based on patient's age to complete this topic Insurance Care Teams Director Of Aviation Relationship Specialty Start Date End Date Robin Goncalves MD [facility] [address] PCP - General Family Medicine 01/01/24
--- OUTSIDE RECORDS SUMMARY | 2025-02-15 18:38 | XMS_ITS | Encounter Summary ---
[facility] Address [address] [place] [phone] Care Team Providers Care Turbine Mechanic Name Role Phone Robin Goncalves MD Primary Care Provider + Encounter Details Date Type Department Care Team (Late st Contact Info) Description 08/24/2024 Results Follow-Up [facility] FAMILY MEDICINE [address] [facility] [place] [address] Robin Goncalves MD [address] [facility] [place] [address] Social History Tobacco Use Types [...] documented as of this encounter Care Teams Turbine Mechanic Relationship Specialty Start Date End Date Robin Goncalves MD [address] [facility] [place] [address] PCP - General Family Medicine 01/01/24 documented as of this encounter
--- OUTSIDE RECORDS SUMMARY | 2025-02-15 18:38 | XMS_ITS | Encounter Summary ---
[facility] Address [address] [place] [phone] Care Team Providers Care Senior Java Ui Developer Name Role Phone Robin Goncalves MD Primary Care Provider + Encounter Details Date Type Department Care Team (Late st Contact Info) Description 10/05/2024 Results Follow-Up [facility] FAMILY MEDICINE [address] [facility] [place] [address] Robin Goncalves MD [address] [facility] [place] [address] Social History Tobacco Use Types [...] documented as of this encounter Care Teams Senior Java Ui Developer Relationship Specialty Start Date End Date Robin Goncalves MD [address] [facility] [address] PCP - General Family Medicine 01/01/24 documented as of this encounter
[2025-02-15 18:39] VITALS: BP 117/74; PULSE 93; RESP 22; TEMP 36.9; O2SAT 99; BMI 30.9
--- NOTE | 2025-02-15 18:40 | ECG_ITS ---
APPROVED REPORT Exam: Resting ECG HR:98 bpm ECG Measurements Heart Rate 98 AXES UT 177 P 66 QRSd 81 QRS 45 QT 323 T 71 QTc 379 Conclusion Normal sinus rhythm at [address] or T wave changes concerning for ischemia Electronically signed by : Meredith Barone, 02/16/2025 00:47:08
[2025-02-15 19:00] VITALS: BP 104/72; PULSE 94; RESP 22; O2SAT 99
--- NOTE | 2025-02-15 19:07 | XR_ITS ---
PROCEDURE INFORMATION: Exam: XR Chest Exam date and time: 02/15/2025 7:21 PM Age: 24 years old Clinical indication: Shortness of breath TECHNIQUE: Imaging protocol: Radiologic exam of the chest. Views: 2 views. COMPARISON: CT ANGIO CHEST 08/24/2024 5:20 AM FINDINGS: Lungs: Unremarkable. No consolidation. Pleural spaces: Unremarkable. No pleural effusion. No pneumothorax. Heart/Mediastinum: Unremarkable. No cardiomegaly. Bones/joints: Unremarkable. IMPRESSION: No acute findings.
--- NOTE | 2025-02-15 19:08 | ED_ITS ---
<Statement entered by Meredith Barone DO - 02/16/25 00:19> I was consulted by the MAGDIEL, and we discussed the complexity of problems being addressed. I approve the treatment and management plan for this patient's care in the emergency department, thus performing a substantial portion of the medical decision making. Meredith Barone DO Discharge Plan Disposition Patient Disposition: Home, Self-Care Prescriptions Prescriptions: No Action nitrofurantoin monohyd/m-cryst 100 mg capsule 100 mg PO Q12H 7 Days Qty: 14 0RF Rx Instructions: must administer with a meal/food phenazopyridine 100 mg tablet 100 mg PO TID PRN (Reason: pain) Qty: 6 0RF Referrals Follow up/Referrals: Danny Swan MD [Staff Physician, Cardiology] - See instructions Robin Goncalves MD [Primary Care Provider, Medical] - See instructions Clinical Impressions Clinical Impression: Palpitations Stand Alone Forms Stand Alone Forms: Work/School Release Instructions Patient Instructions: DI for Palpitations Print Language Print Language: Czech Discharge ED Provider: Meredith Barone General Adult HPI General Chief complaint: Arrhythmia/Palpitations Stated complaint: High Bp; Issue with HR; Time Seen by Provider: 02/15/25 20:05 Mode of Arrival: Ambulatory Source of Information: Patient Description of Symptoms (Recalled from ER Triage Doc. by RN): pt complains of having a high heart rate last night. states it was 199 on her pulse ox @ work. denies any current issues. no prior cardiac issues. does have anxiety. History of Present Illness HPI narrative: Because gama drake is a 24-year-old female without significant past medical history who presents emergency room today with complaints of palpitations. Ms. Drake states that when she was at work last night, she checked her heart rate on a pulse ox and it was noted to be 230. She states it took her about 3 hours to get her heart rate to come back down into the 80s. Has worn a Holter monitor in the past, Holter monitor did not show any tacky arrhythmias at that time. Denies any excessive energy drink/caffeine intake. Reports that she was having palpitations just prior to arrival and decided to come be evaluated in ER setting go to work. Denies any marijuana usage, no kratom usage. No tobacco use, no alcohol use. Does not take any control, did have her tubes removed. No history of DVT or PE in the past. No recent trauma, no lengthy car rides, no air travel. Related Data Previous Rx's ?Medication ?Instructions ?Recorded nitrofurantoin 100 mg PO Q12H 7 days #14 ca ps 01/22/25 monohydrate/macrocrystals 100 mg capsule phenazopyridine 100 mg tablet 100 mg PO TID PRN pain # 6 tabs 01/22/25 Allergies Allergy/AdvReac Type Severity Reaction Status Date / Time No Known Allergies Allergy Verified 01/22/25 16:44 [facility] Disclaimer: The information contained in this section may have been updated after the patient was seen, as this information can be updated by other users. 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 Diarrhea Conjunctivitis Urinary tract infection Kidney stone Depression Anxiety Surgical History History of tubal ligation History of section Social History Smoking Status: Never smoker alcohol intake: never substance use type: denies use current occupational status: other Travel in the last 8 weeks?: None Have you lived/traveled outside US in past 30 days?: No Contact w/someone who lives/traveled outside US past 30 days?: No Exposure to someone with infectious disease in past 14 days?: No Do you have a fever (greater than 100.4 F or 38 C)?: No Have you tested positive for COVID-19?: No Exposed to someone with COVID-19 in past 14 days?: No Do you have a sore throat?: No Do you have a cough?: No Do you have any weakness?: No Do you have any diarrhea?: No Are you experiencing any unusual bleeding?: No Do you have any muscle aches/pain?: No Do you have any abdominal pain?: No Are you experiencing loss of taste or smell?: No Other 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 Have you received the Flu Vaccine for this season: No Have you received the Pneumonia Vaccine: No ROS Obtained: Yes All systems reviewed & no additional complaints except as documented Physical Exam General General appearance: alert and in no apparent distress Head Head exam: atraumatic and normocephalic Eye Eye exam: Present PERRL and EOMI Neck Neck exam: Present trachea midline Chest Chest inspection: Present symmetric chest wall rise Respiratory Respiratory exam: Present normal lung sounds bilaterally Cardiovascular Cardiovascular exam: Present regular rate and normal rhythm Abdominal Exam Abdominal exam: Present soft and normal bowel sounds; Absent tenderness Extremities Exam Extremities exam: Present normal inspection and full ROM Neurological Exam Neurological exam: Present alert and oriented X3 Skin Skin exam: Present warm, dry and intact Medical Decision Making Medical Records Screening: Per USPSTF and CDC recommendations, given the prevalence of disease in our region, it is our hospital?s policy to screen for HIV and viral Hepatitis for all patients aged 18 and over and those with ongoing risk factors. Ray Inquiry Pt receiving controlled substance: No Vital Signs: 02/15/25 18:39 02/15/25 19:00 02/15/25 20:01 Temperature 98.4 F Temperature Source Oral Pulse Rate 94 H 94 H Pulse Rate [Right] 93 H Respiratory Rate 22 22 26 H Blood Pressure 104/72 L 108/55 L Blood Pressure [Right Arm] 117/74 Blood Pressure Mean [Right Arm] 88 02 Sat by Pulse Oximetry 99 99 99 Oxygen Delivery Method Room Air 02/15/25 20:30 02/15/25 21:01 02/15/25 21:14 Temperature 98.1 F Temperature Source Pulse Rate 90 84 81 Pulse Rate [Right] Respiratory Rate 19 22 20 Blood Pressure 98/63 L 109/70 L 109/70 L Blood Pressure [Right Arm] Blood Pressure Mean [Right Arm] 02 Sat by Pulse Oximetry 97 100 Oxygen Delivery Method Room Air Lab Data Lab Results 02/15/25 20:05: WBC 7.0, RBC 4.56, Hgb 11.8 L, Hct 36.8 L, MCV 80.7 L, MCH 25.9 L, MCHC 32.1, RDW 14.9, Plt Count 84 L, MPV 11.3 H, Neut % (Auto) 67.9, Lymph % (Auto) 24.5, Cole % (Auto) 5.9, Eos % (Auto) 0.6, Baso % (Auto) 1.0, Neut # (Auto) 4.7, Lymph # (Auto) 1.7, Cole # (Auto) 0.4, Eos # (Auto) 0.0, Baso # (Auto) 0.1, Sodium 139, Potassium 3.9, Chloride 104, Carbon Dioxide 25, Anion Gap 13.9, BUN 9, Creatinine 0.80, Estimated Creat Clear 140, Estimated GFR 88, Est GFR ( Amer) 107, Glucose 101 H, Calcium 9.5, Total Bilirubin 0.8, AST 25, ALT 17, Alkaline Phosphatase 85, Troponin I < 0.01, Total Protein 7.8, Albumin 4.7, Globulin 3.1, Albumin/Globulin Ratio 1.5, TSH 0.94, HIV Ag/Ab Combo Qual Negative 02/15/25 20:05 02/15/25 20:05 Orders (Tests/Meds): ORDERS Category Date Time Status CXR 2 view (NOT portable) [XR chest 2V] Stat Exams 02/15/25 19:07 Taken CBC w/Auto Diff [Complete Blood Count Auto Diff] Stat Lab 02/15/25 20:05 Completed CMP [Comprehensive Metabolic Panel] Stat Lab 02/15/25 20:05 Completed HIV Combo Stat Lab 02/15/25 20:05 Completed Hepatitis C Ab Qual. W/ RFX Stat Lab 02/15/25 20:05 Received TSH [Thyroid Stimulating Hormone] Stat Lab 02/15/25 20:05 Completed Trop I [Troponin I] Stat Lab 02/15/25 20:05 Completed Troponin I Q3H Lab 02/15/25 22:15 Ordered Troponin I Q3H Lab 02/16/25 01:15 Ordered ECG holter monitor 48 Besson Routine Y 02/15/25 20:00 Completed Medical Decision Narrative: In summary patient is an 24-year-old female who presents emergency department for evaluation of palpitations and shortness of breath. Patient is hemodynamically stable, EKG without ST elevation, normal sinus rhythm upon arrival, afebrile. Unremarkable nonfocal physical exam. Differential diagnosis includes ACS, pneumonia, pulmonary embolism. Initial workup will be conducted with hematologic labs, two-view chest x-ray, EKG. Initial workup reviewed by sc hematologic labs significant for thrombocytopenia with platelets of 84,000, H&H a bit low at 11 and 36, patient is supposed to be on iron supplementation for this, has had iron deficiency anemia diagnoses in the past, did just finish up with her menstrual cycle yesterday, reports heavy bleeding with this. Chest x-ray on my informal read showed no focal consolidation concerning for pneumonia. EKG showed NSR, no ST elevation. TSH normal. Upon repeat evaluation patient continued be asymptomatic, no palpitations noted at this time, has been NSR on the bedside monitor. Did discuss that patient was mildly anemic and had some thrombocytopenia, she states that she follows with her primary care for this, supposed be taking iron supplementation but has not been taking it for several months now. She will follow-up with her primary care physician regarding this. I also gave her a Holter monitor for discharge, she should follow-up with Dr. Swan's office for Holter monitor interpretation/ Follow-up. Given this patient is medically stable and appropriate discharge at this time. Provided her with Dr. Swan's office information for follow-up with Holter monitor. Critical Care Critical Care Time Critical Care Time: No
[2025-02-15 20:01] VITALS: BP 108/55; PULSE 94; RESP 26; O2SAT 99
[2025-02-15 20:20] LABS: Hematocrit 36.8 % (37.0-47.0); Hemoglobin 11.8 g/dL (12.2-16.2); Immature Granulocytes % 0.1 %; Mean Corpuscular HGB Conc 32.1 g/dL (31.8-35.4); Mean Corpuscular Hemoglobin 25.9 pg (27.0-31.2); Mean Corpuscular Volume 80.7 fl (81-99); Nucleated Red Blood Cells % 0 %; Platelet Count 84 K/mm3 (142-424); Red Blood Count 4.56 M/mm3 (4.20-5.40); Red Cell Distribution Width-SD 43.6 fL; White Blood Count 7.0 K/mm3 (4.8-10.8)
[2025-02-15 20:28] LABS: Albumin Level 4.7 g/dl (3.5-5.0); Chloride 104 mmol/L (98-107)
[2025-02-15 20:29] LABS: Potassium 3.9 mmoL/L (3.5-5.1); Sodium 139 mmol/L (136-145)
[2025-02-15 20:30] VITALS: BP 98/63; PULSE 90; RESP 19; O2SAT 97
[2025-02-15 20:31] LABS: Alanine Aminotransferase 17 U/L (12-78); Anion Gap 13.9 mEq/L (5-15); Aspartate Amino Transferase 25 U/L (14-36); Blood Urea Nitrogen 9 mg/dl (7-17); Carbon Dioxide 25 mmol/L (22.0-30.0); Creatinine Clearance Estimated 140 mL/min (50-200); Creatinine,Serum 0.80 mg/dl (0.52-1.04); Estimated Glomerular Filt Rate 88 ml/min (>60); GFR (African American) 107 ML/MIN (>60)
[2025-02-15 20:32] LABS: Albumin/Globulin Ratio 1.5 (1.1-1.8); Alkaline Phosphatase 85 U/L (38-126); Bilirubin,Total 0.8 mg/dl (0.2-1.3); Calcium 9.5 mg/dl (8.4-10.2); Globulin 3.1 g/dL (1.3-3.2); Glucose 101 mg/dl (74-100); Total Protein,Serum 7.8 g/dl (6.3-8.2)
[2025-02-15 20:47] LABS: Troponin I < 0.01 ng/ml (0.00-0.034)
[2025-02-15 21:01] VITALS: BP 109/70; PULSE 84; RESP 22; O2SAT 100
[2025-02-15 21:03] LABS: Thyroid Stimulating Hormone 0.94 uIU/mL (0.465-4.68)
[2025-02-15 21:14] VITALS: BP 109/70; PULSE 81; RESP 20; TEMP 36.7; O2SAT 99
[2025-02-15 21:21] LABS: Hepatitis C Ab Qual. W/ RFX NEGATIVE (Negative)
== END 2025-02-15 21:19 | disposition home or self-care (01) ==
PROVIDERS: Nurse Practitioner Acute Care; Emergency Provider Student in an Organized Health Care Education/Training Program; PCP Family Medicine
DX: R00.2 Palpitations (principal); D69.6 Thrombocytopenia, unspecified
CPT/HCPCS: 71046; 80053; 84443; 84484; 85025; 86803; 87389; 93005; 93225; 93226; 99284

== ENCOUNTER 2025-04-02 10:03 | Outpatient (CLI) | payer OTHER, SELFPAY ==
--- OUTSIDE RECORDS SUMMARY | 2025-04-06 10:08 | XMS_ITS | Clinical Summary ---
Author Organization [facility] Address [address] [place] [address] Care Team Providers Care Lace Weaver Name Role Phone Provider, Caitlin Weathers Primary [...] Palpitation 09/28/2022 35 weeks gestation of 09/28/2022 test positive 02/20/2022 Assessment & Plan (02/20/2022 [...] Resolved Date Postoperative fever 11/01/2022 11/05/19 23 Previous section co mplicating 06/28/2022 02/15/2025 Overview (06/28/2022): Desires Trial of Labor Risks reviewed. 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 No confirmatory testing is required. Blood Venous blood specimen / Unknown Venipuncture / Unknown 06/28/2022 4:24 PM EST 06/28/2022 4:25 PM EST Get Casanova MD LAB BLOOD ORDERABLES Nava l Result [facility] [address] [place] [address] * Hepatitis C Antibody (06/28/2022 4:24 PM EST) Pathologist [facility] Hepatitis C Antibody Negative Negative 06/28/2022 6:29 PM EST [facility] Blood Venous blood specimen / Unknown Venipuncture / Unknown 06/28/2022 4:24 PM EST 06/28/2022 4:25 PM EST Get Casanova MD LAB BLOOD ORDERABLES Nava l Result Performing Organization Address City/[facility]/ZIP Co de Phone Number [facility] [address] [place] [address] from Last 3 Months or Most Recently Relevant to Health Maintenance Insurance [employer] [place] [employer] MEDICAID [facility] Dental Advance Directives * Full Code (Latest Code [...] Patient has decision-making capacity? Yes Care Teams Lace Weaver Relationship Specialty Start Date End Date ProviderCaitlin PCP - General 11/10/20
--- OUTSIDE RECORDS SUMMARY | 2025-04-06 10:08 | XMS_ITS | Clinical Summary ---
Author Organization [facility] Address [address] [place] [address] Care Team Providers Care Software Licensing Specialist Name Role Phone Robin Goncalves MD [...] Type Department Care Team Description 02/12/[address] [facility] [address] [place] [phone] Robin Goncalves MD 01/12/[address] [facility] [address] [place] [phone] Robin Goncalves MD PAPERWORK; CALLBACK from Last [...] Procedure Name Priority Date/Time Associated Diagnosis Comments SCANNED EKG 02/15/2025 SCANNED - LABS 02/15/2025 SCANNED - LABS 02/15/2025 SCANNED - LABS 02/15/2025 SCANNED - IMAGING 02/15/2025 from Last 3 Months Results * ECG Scan (02/15/2025) Robin Goncalves MD ECG ORDERABLES Final Re sult * IMAGING SCANNED (02/15/2025) Anatomical Region Laterality Modality Radiographic Tiny ging Robin Goncalves MD IMG DIAGNOSTIC IMAGING O RDERABLES Final Result * LABS SCANNED (02/15/2025) Only the most recent of3 resultswithin the time period is included. Robin Goncalves MD LAB BLOOD ORDERABLES Fin al Result from Last 3 Months Insurance [facility] [address] [id number] Care Teams Software Licensing Specialist Relationship Specialty Start Date End Date Robin Goncalves MD [address] [facility] [place] [address] PCP - General Family Medicine 01/01/24
--- OUTSIDE RECORDS SUMMARY | 2025-04-06 10:08 | XMS_ITS | Encounter Summary ---
[facility] Address [address] [place] [id number] Care Team Providers Care Associate Professor Name Role Phone Robin Goncalves MD Primary Care Provider + Encounter Details Date Type Department Care Team (Late st Contact Info) Description 08/24/2024 Results Follow-Up [facility] [address] [place] [address] Robin Goncalves MD [address] [address] Social History Tobacco Use Types [...] documented as of this encounter Care Teams Associate Professor Relationship Specialty Start Date End Date Robin Goncalves MD [address] [place] [address] PCP - General Family Medicine 01/01/24 documented as of this encounter
--- OUTSIDE RECORDS SUMMARY | 2025-04-06 10:08 | XMS_ITS | Patient Health Record ---
Author Organization [facility] Address [address] [facility] [address] [place] [address] Care Team Providers Care Analytical Strategist Name Role Phone Argenis Miller [phone] Reason For Referral No Information Social History Social History Additional Details Category Social Info Options Details Miscellaneous: Sexually active: SEXUAL AC TIV: Current Plan Of Treatment No Information Medical (General) History 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 History ICD Code IBS MENSTR FLOW: Heavy PROMETHAZINE HCL 12.5 MG ORAL TABLET, OR AL Surgical History Surgery Date(Month/Year) denies
--- OUTSIDE RECORDS SUMMARY | 2025-04-06 10:08 | XMS_ITS | Encounter Summary ---
[facility] Address [address] [place] [phone] Care Team Providers Care Laboratory Manager Name Role Phone Rboin Goncalves MD Primary Care Provider + Encounter Details Date Type Department Care Team (Late st Contact Info) Description 10/05/2024 Results Follow-Up [facility] [address] [facility] [address] Robin Goncalves MD [address] [facility] [place] [address] Social History Tobacco Use Types [...] documented as of this encounter Care Teams Laboratory Manager Relationship Specialty Start Date End Date Robin Goncalves MD [address] [facility] [place] [address] PCP - General Family Medicine 01/01/24 documented as of this encounter
--- OUTSIDE RECORDS SUMMARY | 2025-04-06 10:08 | XMS_ITS | Encounter Summary ---
[facility] Address [address] [place] [phone] Care Team Providers Care Community Nutrition Educator Name Role Phone Robin Goncalves MD Primary Care Provider + Reason for Visit * Reason Comments Med Refill Encounter Details Date Type Department Care Team (Late st Contact Info) Description 02/12/2025 Refill [facility] [address] [place] [address] Robin Goncalves MD [address] [place] [address] Social History Tobacco Use Types [...] documented as of this encounter Care Teams Community Nutrition Educator Relationship Specialty Start Date End Date Robin Goncalves MD [address] [place] [address] PCP - General Family Medicine 01/01/24 documented as of this encounter
== END 2025-04-02 23:59 ==
LOC: LAB.DROPOF 04-06 10:03
PROVIDERS: PCP Family Medicine; Visit Provider Student in an Organized Health Care Education/Training Program
DX: J02.9 Acute pharyngitis, unspecified (principal); N39.0 Urinary tract infection, site not specified
CPT/HCPCS: 87086